=== PATIENT | female | born 1990 | race Caucasian/White ===

== ENCOUNTER 2016-08-22 16:39 | Observation (INO) | payer BC ==
[~2016-08-22] VITALS: Ht 167.6 cm; Wt 65.8 kg
[~2016-08-22 16:39] MED LIST: CEFU500T PO; CEPH500C PO; CITA20TA4; FLC150T PO; HYDR1TAB PO; LORA1TAB PO; METO10SO PO; METO10TA61 PO; METR500T PO; NITR-65 PO; ONDA-42 SL; ONDN4T PO; PHEN100T17 PO; SRTR100T PO; SULF1TAB38 PO; TRI-SPRINTEC PO; ZLP10T PO; [UNRECOGNIZED DRUG - CODE] PV
[2016-08-22 17:21] LABS: BILIRUBIN,URINE NEGATIVE (NEGATIVE); KETONES,URINE NEGATIVE (NEGATIVE); LEUKOCYTE ESTERASE ,URINE NEGATIVE (NEGATIVE); NITRITE,URINE NEGATIVE (NEGATIVE); PH,URINE 7 (5-9); PROTEIN,URINE 1+ (NEGATIVE); UROBILINOGEN,URINE NORMAL (NORMAL)
[2016-08-22 17:38] LABS: WBC,URINE RARE /HPF
--- NOTE | 2016-08-22 17:38 | ED Psychosocial ---
General Chief Complaint: Psych/Social Disorder Stated Complaint: PSYCH EVAL Nursing Triage Note: c/o etoh abuse and suicidal ideations. Pt has a hx of chronic ETOH abuse. Source: patient, other (significant other) Exam Limitations: no limitations History of Present Illness Time seen by provider: 17:38 Initial Comments 26 yo female patient presents to the ED with complaint of EtOH abuse and suicidal ideation. Patient states she did have a handful of pills she was about to take one her significant other walked in stopping her. Patient reports drinking 5-6 "gulps of vodka" today. Patient stopped her zoloft cold turkey 1 wk ago and is not sure if this has made her symptoms. worse. Boyfriend reports patient has been more irritable and agitated over the last several days. Patient's father committed suicide. Patient recently lost her job. States she has been drinking consistently for the last 1 wk. Prior binge drinking x2 episodes over the last 3 wks. Timing/Duration: week, getting worse Associated Symptoms: anxiety, impaired concentration, ingestion (ETOH), suicidal ideation Allergies and Home Medications Allergies Coded Allergies: codeine (Unverified Allergy, Unknown, 02/06/12) Home Medications No Active Prescriptions or Reported Meds Constitutional: no symptoms reported EENTM: no symptoms reported Respiratory: no symptoms reported Cardiovascular: no symptoms reported Gastrointestinal: No abdominal pain, No constipation, No diarrhea, loss of appetiteNo nausea, No vomiting Genitourinary: no symptoms reported : No Musculoskeletal: no symptoms reported Skin: no symptoms reported Psychiatric/Neurological: See HPI Anxiety DepressedDenies Headache, Denies Numbness, Denies Paresthesia, Denies Seizure, Denies Tingling, Denies Weakness All Other Systems Reviewed Negative Unless Noted: Yes (Negative excepted noted.) Past Kfiiunp-Owvzgb-Bvnuao Hx Patient Social History Alcohol Use: Regular Use Recreational Drug Use: No (etoh, ectasy) Smoking Status: Unknown if Ever Smoked Recent Foreign Travel: No Contact w/Someone Who Travel: No Recent Infectious Disease Expo: No Physical Abuse Screen: No Sexual Abuse: No Immunizations Up To Date Tetanus Booster (TDap): Unknown Date of Influenza Vaccine: Oct 05, 2015 Surgeries HX Surgeries: No Respiratory Hx Respiratory Disorders: No Cardiovascular Hx Cardiac Disorders: No Neurological Hx Neurological Disorders: No Reproductive System : No Hx Reproductive Disorders: No Sexually Transmitted Disease: No Genitourinary Hx Genitourinary Disorders: No Gastrointestinal Hx Gastrointestinal Disorders: Yes (recurrent chronic abdominal pain) Musculoskeletal Hx Musculoskeletal Disorders: No Endocrine Hx Endocrine Disorders: No HEENT HX ENT Disorders: No Cancer Hx Cancer: No Psychosocial Hx Psychiatric Problems: Yes Behavioral Health Disorders: Anxiety, Depression Integumentary HX Skin/Integumentary Disorder: No Blood Transfusions Hx Blood Disorders: No Reviewed Nursing Assessment Reviewed/Agree w Nursing PMH: Yes Family Medical History Significant Family History: No Pertinent Family Hx Family Medial History: Alcoholism 19 MOTHER Thyroid disease 19 FATHER Physical Exam Vital Signs Vital Sign - Last 12Hours 08/22/16 16:45 Temp 97.3 Pulse 100 Resp 18 B/P 147/111 Pulse Ox 98 O2 Delivery Room Air Capillary Refill : Less Than 3 Seconds General Appearance: WD/WN no apparent distress HEENT: PERRL/EOMI pharynx normal Neck: supple normal inspection Respiratory: lungs clear normal breath sounds no respiratory distress Cardiovascular: normal peripheral pulses regular rate, rhythm no edema no murmur Gastrointestinal: normal bowel sounds non tender soft no organomegalyNo distended Extremities: normal inspection no pedal edema no calf tenderness normal capillary refill Neurologic/Psychiatric: environmental scientists II-XII nml as tested no motor/sensory deficits alert oriented x 3 depressed affect Appearance/Memory: appropriate appearance neat no memory impairment impaired insight Behavior/Eye Contact: cooperative avoids eye contact decreased rate of speech Thoughts/Hallucinations: normal thought pattern no apparent hallucination Skin: normal color warm/dry Progress/Results/Core Measures Results/Orders Lab Results Laboratory Tests Test 08/22/16 16:55 08/22/16 18:00 08/22/16 21:10 Range/Units Ur Tricyclic Antidepressants Screen NEGATIVE NEGATIVE Urine Amphetamines Screen NEGATIVE NEGATIVE Urine Bacteria TRACE /HPF Urine Barbiturates Screen NEGATIVE NEGATIVE Urine Benzodiazepines Screen NEGATIVE NEGATIVE Urine Bilirubin NEGATIVE NEGATIVE Urine Cannabinoids Screen NEGATIVE NEGATIVE Urine Casts NONE /LPF Urine Clarity SLIGHTLY CLOUDY Urine Cocaine Screen NEGATIVE NEGATIVE Urine Color YELLOW Urine Crystals NONE /LPF Urine Culture Indicated NO Urine Glucose (UA) NEGATIVE NEGATIVE Urine Ketones NEGATIVE NEGATIVE Urine Leukocyte Esterase NEGATIVE NEGATIVE Urine Methadone Screen NEGATIVE NEGATIVE Urine Methamphetamines Screen NEGATIVE NEGATIVE Urine Mucus NEGATIVE /LPF Urine Nitrite NEGATIVE NEGATIVE Urine Opiates Screen NEGATIVE NEGATIVE Urine Oxycodone Screen NEGATIVE NEGATIVE Urine Phencyclidine Screen NEGATIVE NEGATIVE Urine Test NEGATIVE NEGATIVE Urine Propoxyphene Screen NEGATIVE NEGATIVE Urine Protein 1+ H NEGATIVE Urine RBC 0-2 /HPF Urine RBC (Auto) 3+ H NEGATIVE Urine Specific [place] 1.010 L 1.016-1.022 Urine Squamous Epithelial Cells 2-5 /HPF Urine Urobilinogen NORMAL NORMAL MG/DL Urine WBC RARE /HPF Urine pH 7 5-9 Acetaminophen Level < 10 L 10-30 UG/ML Alanine Aminotransferase (ALT/SGPT) 50 0-55 U/L Albumin 4.4 3.2-4.5 G/DL Alkaline Phosphatase 56 40-136 U/L Anion Gap 13 5-14 MMOL/L Aspartate Amino Transf (AST/SGOT) 75 H 5-34 U/L BUN/Creatinine Ratio 13 Basophils # (Auto) 0.0 0.0-0.1 10^3/uL Basophils (%) (Auto) 1 0-10 % Blood Urea Nitrogen 9 7-18 MG/DL Calcium Level 8.4 L 8.5-10.1 MG/DL Carbon Dioxide Level 22 21-32 MMOL/L Chloride Level 108 H 98-107 MMOL/L Creatinine 0.69 0.60-1.30 MG/DL Eosinophils # (Auto) 0.1 0.0-0.3 10^3/uL Eosinophils (%) (Auto) 3 0-10 % Estimat Glomerular Filtration Rate > 60 Glucose Level 83 70-105 MG/DL Hematocrit 42 35-52 % Hemoglobin 14.7 11.5-16.0 G/DL Lymphocytes # (Auto) 1.3 1.0-4.0 X 10^3 Lymphocytes (%) (Auto) 35 12-44 % Mean Corpuscular Hemoglobin 33 25-34 PG Mean Corpuscular Hemoglobin Concent 35 32-36 G/DL Mean Corpuscular Volume 92 80-99 FL Mean Platelet Volume 10.0 7.4-10.4 FL Monocytes # (Auto) 0.3 0.0-1.0 X 10^3 Monocytes (%) (Auto) 8 0-12 % Neutrophils # (Auto) 2.0 1.8-7.8 X 10^3 Neutrophils (%) (Auto) 53 42-75 % Platelet Count 179 130-400 10^3/uL Potassium Level 3.8 3.6-5.0 MMOL/L Red Blood Count 4.51 4.35-5.85 10^6/uL Red Cell Distribution Width 12.0 10.0-14.5 % Salicylates Level < 5.0 L 5.0-20.0 MG/DL Serum Alcohol 348 *H 266 H <10 MG/DL Sodium Level 143 135-145 MMOL/L TSH Chambers Testing 1.14 0.35-4.94 UIU/ML Total Bilirubin 1.0 0.1-1.0 MG/DL Total Protein 6.6 6.4-8.2 G/DL White Blood Count 3.7 L 4.3-11.0 10^3/uL My Orders Orders-ALEJANDRO CHERRY Ua Culture If Indicated (08/22/16 16:56) Cbc With Automated Diff (08/22/16 16:56) Comprehensive Metabolic Panel (08/22/16 16:56) Alcohol (08/22/16 16:56) Drug Screen Stat (Urine) (08/22/16 16:56) Acetaminophen (08/22/16 16:56) Salicylate (08/22/16 16:56) Ekg Tracing (08/22/16 16:56) Hcg,Qualitative Urine (08/22/16 16:56) Thyroid Analyzer (08/22/16 16:56) General/Regular (08/23/16 Dinner) General/Regular (08/22/16 Dinner) Alcohol (08/22/16 21:03) Lorazepam Injection (Ativan Injection) (08/22/16 21:15) Medications Given in ED Current Medications Medications Dose Ordered Sig/Carroll Route Start Time Stop Time Status Last Admin Dose Admin Lorazepam 0.5 mg ONCE ONCE IVP 08/22/16 21:15 08/22/16 21:16 DC 08/22/16 21:26 0.5 MG Vital Signs/I&O Vital Sign - Last 12Hours 08/22/16 08/22/16 08/22/16 16:45 19:25 23:09 Temp 97.3 Pulse 100 104 119 Resp 18 16 16 B/P 147/111 129/80 102/77 Pulse Ox 98 98 98 O2 Delivery Room Air Room Air Room Air Blood Pressure Mean: 123 ECG Initial ECG Impression Date: Aug 22, 2016 Initial ECG Impression Time: 17:39 Initial ECG Rate: 86 Initial ECG Rhythm: Normal Sinus Initial ECG Intervals: Normal Initial ECG Impression: Normal Initial ECG Comparisson: Unchanged Comment Normal sinus rhythm. No STEMI or arrhythmia noted. ECG reviewed and discussed with Dr. Jiang Departure Communication Time/Spoke to Admitting Phy: 23:[address] Hahn accepts patient to his internal medicine service for short stay until bed is available in the AM. Progress Notes [facility] contacted. Requests patient info to be faxed to their facility for review by the psychiatrist. Patient notified. 2104 Return call accepted from Berta at [facility]. Psychiatrist is requesting an repeat ETOH level. Patient notified of this. Patient denies any new needs or complaints. 2138 Repeat ETOH results called to Berta at [facility]. [facility] in [place], [place] accepts patient to their facility for suicidal ideation, depression, and ETOH intoxication, but will not have a bed available until 0700 in the AM. All laboratory findings and diagnostic study findings discussed with the patient. Plan for admission overnight until that is available in the a.m. at [facility] discussed with the patient. Patient voices understanding and agrees with the treatment plan. Patient case discussed with Dr. Meza, she agrees with the plan of care. Impression Impression: Primary Impression: Depression with suicidal ideation Additional Impressions: Alcohol intoxication Qualified Code: F10.120 - Alcohol abuse with intoxication, uncomplicated Stress at home Disposition: ADMITTED INPATIENT Condition: Stable Decision to Admit Reason: Admit from ER (General) Decision to Admit/Date: Aug 22, 2016 Time/Decision to Admit Time: 23:15 Departure-Patient Inst. Referrals: NO,LOCAL PHYSICIAN (PCP/Family) Primary Care Physician Scripts No Active Prescriptions or Reported Meds ALEJANDRO CHERRY Aug 22, 2016 17:38
[2016-08-22 18:31] LABS: ALANINE AMINOTRANSFERASE 50 U/L (0-55); ALBUMIN 4.4 G/DL (3.2-4.5); ANION GAP 13 MMOL/L (5-14); ASPARTATE AMINO TRANSFERASE 75 U/L (5-34); BLOOD UREA NITROGEN 9 MG/DL (7-18); BUN/CREATININE RATIO 13; CALCIUM 8.4 MG/DL (8.5-10.1); CARBON DIOXIDE 22 MMOL/L (21-32); CHLORIDE 108 MMOL/L (98-107); CREATININE SERUM 0.69 MG/DL (0.60-1.30); GFR ESTIMATED > 60; GLUCOSE 83 MG/DL (70-105); POTASSIUM 3.8 MMOL/L (3.6-5.0); SALICYLATE < 5.0 MG/DL (5.0-20.0); SODIUM 143 MMOL/L (135-145); TOTAL PROTEIN 6.6 G/DL (6.4-8.2)
[2016-08-22 18:32] LABS: ACETAMINOPHEN < 10 UG/ML (10-30)
[2016-08-22 18:33] LABS: ALCOHOL 348 MG/DL (<10)
[2016-08-22 18:36] LABS: BASOPHILS % (AUTO) 1 % (0-10); EOSINOPHILS # (AUTO) 0.1 10^3/uL (0.0-0.3); EOSINOPHILS % (AUTO) 3 % (0-10); LYMPHOCYTES # (AUTO) 1.3 X 10^3 (1.0-4.0); LYMPHOCYTES % (AUTO) 35 % (12-44); MEAN CORPUSCULAR HEMOGLOBIN 33 PG (25-34); MEAN CORPUSCULAR HGB CONC 35 G/DL (32-36); MEAN CORPUSCULAR VOLUME 92 FL (80-99); MONOCYTES # (AUTO) 0.3 X 10^3 (0.0-1.0); MONOCYTES % (AUTO) 8 % (0-12); NEUTROPHILS % (AUTO) 53 % (42-75); PLATELET COUNT 179 10^3/uL (130-400); RED BLOOD COUNT 4.51 10^6/uL (4.35-5.85); WHITE BLOOD COUNT 3.7 10^3/uL (4.3-11.0)
[2016-08-22 19:25] VITALS: BP 129/80
[2016-08-22] MEDS ORDERED: LORazepam INJ 2 MG/ML (ATIVAN) VIAL IVP ONE (21:15)
[2016-08-22 23:09] VITALS: BP 102/77
[2016-08-23 01:00] VITALS: BP 112/81
[2016-08-23] MEDS ORDERED: LORazepam INJ 2 MG/ML (ATIVAN) VIAL IV PRN (02:15)
[2016-08-23] MEDS ORDERED: ACETAMINOPHEN 500 MG TAB (TYLENOL) PO PRN (02:15)
[2016-08-23] MEDS ORDERED: ONDANSETRON 4 MG/2 ML (SDV) Z0FRAN IV PRN (02:15)
[2016-08-23 04:00] VITALS: BP 127/79
[2016-08-23 06:25] LABS: BASOPHILS % (AUTO) 1 % (0-10); EOSINOPHILS # (AUTO) 0.1 10^3/uL (0.0-0.3); EOSINOPHILS % (AUTO) 3 % (0-10); LYMPHOCYTES # (AUTO) 1.1 X 10^3 (1.0-4.0); LYMPHOCYTES % (AUTO) 27 % (12-44); MEAN CORPUSCULAR HEMOGLOBIN 32 PG (25-34); MEAN CORPUSCULAR HGB CONC 35 G/DL (32-36); MEAN CORPUSCULAR VOLUME 92 FL (80-99); MEAN PLATELET VOLUME 10.3 FL (7.4-10.4); MONOCYTES # (AUTO) 0.4 X 10^3 (0.0-1.0); MONOCYTES % (AUTO) 10 % (0-12); NEUTROPHILS # (AUTO) 2.4 X 10^3 (1.8-7.8); NEUTROPHILS % (AUTO) 60 % (42-75); PLATELET COUNT 139 10^3/uL (130-400); RED BLOOD COUNT 4.19 10^6/uL (4.35-5.85); RED CELL DISTRIBUTION WIDTH 11.9 % (10.0-14.5)
[2016-08-23 06:43] LABS: ALANINE AMINOTRANSFERASE 49 U/L (0-55); ALCOHOL 82 MG/DL (<10); ANION GAP 14 MMOL/L (5-14); ASPARTATE AMINO TRANSFERASE 74 U/L (5-34); BILIRUBIN,TOTAL 1.4 MG/DL (0.1-1.0); BLOOD UREA NITROGEN 9 MG/DL (7-18); BUN/CREATININE RATIO 14; CALCIUM 8.6 MG/DL (8.5-10.1); CARBON DIOXIDE 20 MMOL/L (21-32); CHLORIDE 103 MMOL/L (98-107); CREATININE SERUM 0.63 MG/DL (0.60-1.30); GFR ESTIMATED > 60; GLUCOSE 75 MG/DL (70-105); POTASSIUM 3.4 MMOL/L (3.6-5.0); SODIUM 137 MMOL/L (135-145); TOTAL PROTEIN 6.1 G/DL (6.4-8.2)
[2016-08-23] MEDS ORDERED: FLU TRIvalent (5 YOA+) 2016-17 (AFLURIA) 0.5 ML IM ONE (07:15)
[2016-08-23 08:31] VITALS: BP 126/90
[2016-08-23 09:20] VITALS: BP 126/90
--- NOTE | 2016-09-06 13:37 | Short Stay Summary-Hospitalist ---
TYRONE MAHMOOD MD 09/06/16 1337: HPI History of Present Illness: HPI/Chief Complaint The patient is a 26-year-old white female known substance abuser. She presented to the emergency room on the evening of 08/22 acutely and dangerously intoxicated with a alcohol level of 348. She was admitted to the ICU for surveillance and IV therapy. Her ethanol level declined metabolically as would be expected. She awakened and left AMA without being seen. Date Seen 09/06/16 Attending Physician Tyrone Mahmood MD PCP No,Local Physician Referring Physician Date of Admission Aug 23, 2016 at 00:50 Home Medications & Allergies Home Medications Reviewed patient Home Medication Reconciliation Form Allergies Coded Allergies: codeine (Unverified Allergy, Unknown, 02/06/12) Past Jzxzchi-Cbfabl-Buhslp Hx Patient Social History Alcohol Use: Regular Use Recreational Drug Use: No Smoking Status: Former Smoker Physical Abuse Screen: No Sexual Abuse: No Recent Foreign Travel: No Contact w/other who traveled: No Recent Hopitalizations: Yes Recent Infectious Disease Expo: No Immunizations Up To Date Tetanus Booster (TDap): Unknown Date of Influenza Vaccine: Oct 05, 2015 Surgeries HX Surgeries: No Respiratory Hx Respiratory Disorders: No Cardiovascular Hx Cardiovascular Disorders: No Neurological Hx Neurological Disorders: No Reproductive System : No Hx Reproductive Disorders: No Sexually Transmitted Disease: No Genitourinary Hx Genitourinary Disorders: No Gastrointestinal Hx Gastrointestinal Disorders: Yes (recurrent chronic abdominal pain) Musculoskeletal Hx Musculoskeletal Disorders: No Endocrine Hx Endocrine Disorders: No HEENT HX ENT Disorders: No Cancer Hx Cancer: No Psychosocial Hx Psychiatric Problems: Yes Behavioral Health Disorders: Eating Disorder, Sleep Difficulties, Anxiety, Depression Integumentary HX Skin/Integumentary Disorder: No Blood Transfusions Hx Blood Disorders: No Reviewed Nursing Assessment Reviewed/Agree w Nursing PMH: Yes Family Medical History Significant Family History: No Pertinent Family Hx Family Hx: Alcoholism 19 MOTHER Thyroid disease 19 FATHER Review of Systems Constitutional: see HPI Physical Exam Physical Exam Vital Signs Capillary Refill : Less Than 3 Seconds Short Stay Diagnosis Discharge Diagnosis-Short Stay Admission Diagnosis Acute alcohol intoxication Final Discharge Diagnosis 1.acute alcohol intoxication. 2.chronic substance abuse Clinical Quality Measures DVT/VTE Risk/Contraindication: RFS Level Per Nursing on Admit: 0=No Risk/No VTE PPX TARSHA SMITH 09/27/16 1257: Home Medications & Allergies Allergies Coded Allergies: codeine (Unverified Allergy, Unknown, 02/06/12) Past Sbmntim-Vieiit-Jnuqwj Hx Family Medical History Family Hx: Alcoholism 19 MOTHER Thyroid disease 19 FATHER TYRONE MAHMOOD MD Sep 06, 2016 13:37 TARSHA SMITH Sep 27, 2016 12:57
== END 2016-08-23 09:36 ==
LOC: EDUNIT# 16:39 → ER 16:41 → UNDOADMOB 23:10 → 4TH 23:10 → UNDODISOB 08-23 09:20
PROVIDERS: ADMIT Internal Medicine; ATTEND Internal Medicine
DX: F32.9 Major depressive disorder, single episode, unspecified (principal); F10.120 Alcohol abuse with intoxication, uncomplicated; Z63.8 Other specified problems related to primary support group
CPT/HCPCS: 36415; 80053; 80306; 80320; 80329; 81000; 84443; 84703; 85025; 93005; 96374; G0378

== ENCOUNTER → 2017-11-07 | Outpatient (CLI) | payer BC, OTHER ==
--- NOTE | 2017-11-07 16:11 | Diagnostic Imaging Report ---
PROCEDURE: US PELVIC (NON OB) TECHNIQUE: Multiple real-time grayscale images were obtained over the pelvis in various projections transabdominally. IMPRESSION: Dysmenorrhea. FINDINGS: The previous pelvic ultrasound exam performed on 10/09/2014 failed to show any sign of an acute pelvic abnormality. On this study, the uterus is nongravid and not enlarged measuring 6.9 x 5 x 2.8 cm. The endometrial lining is slightly thickened measuring 9 mm (normal 5 mm or less). This finding is nonspecific. Correlation with the patient's menstrual cycle will be recommended. There is no focal mass involving the uterus to suggest a fibroid. Both ovaries are identified. There is a 2.2 x 1.4 x 1.8 cm cyst arising from the right ovary. This cyst has a generally benign appearance. There are few subcentimeter follicles on the left ovary. There is good blood flow to each ovary and there is no sign of torsion. There is no pelvic mass or free fluid collection noted. IMPRESSION: 1. In the interval since the prior exam, a 2.2 x 1.4 x 1.8 cm benign-appearing cyst has developed in the right ovary. 2. There is no acute pelvic abnormality noted otherwise. Dictated by: Dictated on workstation # [id number]
== END ==
LOC: RAD 12:50
PROVIDERS: ATTEND Nurse Practitioner Family
DX: N83.201 Unspecified ovarian cyst, right side (principal)
CPT/HCPCS: 76856

== ENCOUNTER 2018-03-15 12:00 | Observation (INO) | payer OTHER ==
[~2018-03-15] VITALS: Ht 167.6 cm; Wt 69.5 kg
[2018-03-15] MEDS ORDERED: ONDANSETRON 4 MG/2 ML (SDV) Z0FRAN ONE (12:32)
[2018-03-15] MEDS ORDERED: NS IV 1000 ML 1,000 ML ONE (12:32)
[2018-03-15] MEDS ORDERED: NS IV 1000 ML 1,000 ML IV SCH (12:33)
[2018-03-15 12:41] LABS: BASOPHILS % (AUTO) 0 % (0-10); EOSINOPHILS # (AUTO) 0.1 10^3/uL (0.0-0.3); EOSINOPHILS % (AUTO) 1 % (0-10); HEMATOCRIT 41 % (35-52); HEMOGLOBIN 14.8 G/DL (11.5-16.0); LYMPHOCYTES # (AUTO) 2.5 X 10^3 (1.0-4.0); LYMPHOCYTES % (AUTO) 36 % (12-44); MEAN CORPUSCULAR HEMOGLOBIN 33 PG (25-34); MEAN CORPUSCULAR HGB CONC 37 G/DL (32-36); MEAN CORPUSCULAR VOLUME 91 FL (80-99); MONOCYTES # (AUTO) 0.5 X 10^3 (0.0-1.0); MONOCYTES % (AUTO) 7 % (0-12); NEUTROPHILS # (AUTO) 3.8 X 10^3 (1.8-7.8); NEUTROPHILS % (AUTO) 55 % (42-75); PLATELET COUNT 294 10^3/uL (130-400); RED BLOOD COUNT 4.47 10^6/uL (4.35-5.85)
[2018-03-15 12:42] LABS: BILIRUBIN,URINE NEGATIVE (NEGATIVE); CLARITY,URINE CLEAR; COLOR,URINE YELLOW; GLUCOSE, URINE (UA) NEGATIVE (NEGATIVE); KETONES,URINE NEGATIVE (NEGATIVE); LEUKOCYTE ESTERASE ,URINE 2+ (NEGATIVE); NITRITE,URINE NEGATIVE (NEGATIVE); PH,URINE 7 (5-9); PROTEIN,URINE NEGATIVE (NEGATIVE); UROBILINOGEN,URINE NORMAL (NORMAL)
--- NOTE | 2018-03-15 12:42 | ED Abdominal Pain ---
General Stated Complaint: VOMITING Source of Information: Patient Exam Limitations: No Limitations History of Present Illness Date Seen by Provider: Mar 15, 2018 Time Seen by Provider: 12:38 Initial Comments Patient is a 28-year-old female who presents to the emergency room with complaints of nausea, vomiting, diarrhea for 6 days. She reports that she was seen at [facility] on Sunday of this week and was told that it was from her control and she was told to stop taking it. Denies any fevers Timing/Duration: 5-6 Days Severity/Quality: Cramping Location: Generalized Abdomen Associated Symptoms: Back Pain, Nausea/Vomiting Allergies and Home Medications Allergies Coded Allergies: codeine (Unverified Allergy, Unknown, 03/15/18) Home Medications No Active Prescriptions or Reported Meds Patient Home Medication List Home Medication List Reviewed: Yes Review of Systems Constitutional: see HPI; No chills, No fever Gastrointestinal: See HPI, Abdominal Pain, Diarrhea, Nausea, Vomiting All Other Systems Reviewed Negative Unless Noted: Yes Past Qljjrcf-Pjtswq-Dxooqy Hx Past Med/Social Hx: Reviewed Nursing Past Med/Soc Hx Patient Social History Alcohol Beverage of Choice: Vodka Recent Foreign Travel: No Contact w/Someone Who Travel: No Recent Hopitalizations: Yes Immunizations Up To Date Tetanus Booster (TDap): Unknown Date of Influenza Vaccine: Oct 05, 2015 Past Medical History Surgeries: No (wisdom teeth removal) Respiratory: No Cardiac: No Neurological: No Reproductive Disorders: No Sexually Transmitted Disease: No Genitourinary: No Gastrointestinal: No Musculoskeletal: No Endocrine: No HEENT: No Cancer: No Psychosocial: Yes Eating Disorder, Sleep Difficulties, Anxiety, Depression Integumentary: No Blood Disorders: No Family Medical History Reviewed Nursing Family Hx Alcoholism 19 MOTHER Thyroid disease 19 FATHER No Pertinent Family Hx Physical Exam Vital Signs Vital Signs - First Documented 03/15/18 12:21 Temp 98.5 Pulse 90 Resp 16 B/P (MAP) 121/91 (101) Pulse Ox 96 Capillary Refill : Height/Weight/BMI Height: 5'6.00" Weight: 145lbs. 0.0oz. 65.480558aq; 23.4 BMI Method:Estimated General Appearance: WD/WN, no apparent distress Respiratory: chest non-tender, lungs clear, normal breath sounds, no respiratory distress, no accessory muscle use Cardiovascular: regular rate, rhythm, no edema, no gallop, no JVD, no murmur Gastrointestinal: normal bowel sounds, non tender, soft, no organomegaly Neurologic/Psychiatric: alert, normal mood/affect, oriented x 3 Progress/Results/Core Measures Results/Orders Lab Results Laboratory Tests Test 03/15/18 12:23 03/15/18 12:30 Range/Units Urine Color YELLOW Urine Clarity CLEAR Urine pH 7 5-9 Urine Specific [place] 1.005 L 1.016-1.022 Urine Protein NEGATIVE NEGATIVE Urine Glucose (UA) NEGATIVE NEGATIVE Urine Ketones NEGATIVE NEGATIVE Urine Nitrite NEGATIVE NEGATIVE Urine Bilirubin NEGATIVE NEGATIVE Urine Urobilinogen NORMAL NORMAL MG/DL Urine Leukocyte Esterase 2+ H NEGATIVE Urine RBC (Auto) NEGATIVE NEGATIVE Urine RBC NONE /HPF Urine WBC 10-25 H /HPF Urine Squamous Epithelial Cells 10-25 H /HPF Urine Crystals NONE /LPF Urine Bacteria MODERATE H /HPF Urine Casts NONE /LPF Urine Mucus NEGATIVE /LPF Urine Culture Indicated YES Urine Test NEGATIVE NEGATIVE Urine Opiates Screen NEGATIVE NEGATIVE Urine Oxycodone Screen NEGATIVE NEGATIVE Urine Methadone Screen NEGATIVE NEGATIVE Urine Propoxyphene Screen NEGATIVE NEGATIVE Urine Barbiturates Screen NEGATIVE NEGATIVE Ur Tricyclic Antidepressants Screen NEGATIVE NEGATIVE Urine Phencyclidine Screen NEGATIVE NEGATIVE Urine Amphetamines Screen NEGATIVE NEGATIVE Urine Methamphetamines Screen NEGATIVE NEGATIVE Urine Benzodiazepines Screen NEGATIVE NEGATIVE Urine Cocaine Screen NEGATIVE NEGATIVE Urine Cannabinoids Screen NEGATIVE NEGATIVE White Blood Count 7.0 4.3-11.0 10^3/uL Red Blood Count 4.47 4.35-5.85 10^6/uL Hemoglobin 14.8 11.5-16.0 G/DL Hematocrit 41 35-52 % Mean Corpuscular Volume 91 80-99 FL Mean Corpuscular Hemoglobin 33 25-34 PG Mean Corpuscular Hemoglobin Concent 37 H 32-36 G/DL Red Cell Distribution Width 12.0 10.0-14.5 % Platelet Count 294 130-400 10^3/uL Mean Platelet Volume 10.0 7.4-10.4 FL Neutrophils (%) (Auto) 55 42-75 % Lymphocytes (%) (Auto) 36 12-44 % Monocytes (%) (Auto) 7 0-12 % Eosinophils (%) (Auto) 1 0-10 % Basophils (%) (Auto) 0 0-10 % Neutrophils # (Auto) 3.8 1.8-7.8 X 10^3 Lymphocytes # (Auto) 2.5 1.0-4.0 X 10^3 Monocytes # (Auto) 0.5 0.0-1.0 X 10^3 Eosinophils # (Auto) 0.1 0.0-0.3 10^3/uL Basophils # (Auto) 0.0 0.0-0.1 10^3/uL Sodium Level 140 135-145 MMOL/L Potassium Level 3.6 3.6-5.0 MMOL/L Chloride Level 105 98-107 MMOL/L Carbon Dioxide Level 24 21-32 MMOL/L Anion Gap 11 5-14 MMOL/L Blood Urea Nitrogen 9 7-18 MG/DL Creatinine 0.80 0.60-1.30 MG/DL Estimat Glomerular Filtration Rate > 60 BUN/Creatinine Ratio 11 Glucose Level 113 H 70-105 MG/DL Calcium Level 8.8 8.5-10.1 MG/DL Corrected Calcium 8.6 8.5-10.1 MG/DL Magnesium Level 2.1 1.8-2.4 MG/DL Total Bilirubin 1.0 0.1-1.0 MG/DL Aspartate Amino Transf (AST/SGOT) 20 5-34 U/L Alanine Aminotransferase (ALT/SGPT) 20 0-55 U/L Alkaline Phosphatase 51 40-136 U/L Total Protein 6.8 6.4-8.2 GM/DL Albumin 4.3 3.2-4.5 GM/DL Lipase 34 8-78 U/L Serum Alcohol 348 *H <10 MG/DL Medications Given in ED Current Medications Medications Dose Ordered Sig/Carroll Route Start Time Stop Time Status Last Admin Dose Admin Ondansetron HCl 4 mg ONCE ONCE IVP 03/15/18 12:45 03/15/18 12:46 DC 03/15/18 12:37 4 MG Vital Signs/I&O 03/15/18 12:21 Temp 98.5 Pulse 90 Resp 16 B/P (MAP) 121/91 (101) Pulse Ox 96 Progress Progress Note : Time: 13:40 Progress Note Spoke to Dr. Mosqueda at this time. She agrees with admission, she also recommends the alcohol withdrawal protocol in addition to 2 mg of Ativan IV every 6 hours scheduled. Patient was informed of plan of care and agrees. She states that her last drink of alcohol was at 2 AM last night. She states that she drinks lots regularly anywhere from a couple of drinks a night to a pint of alcohol. She denies ever having seizures but she does state that she withdrawals. Departure Communication (Admissions) Time/Spoke to Admitting Phy: 13:40 Dr. Mosqueda Impression Primary Impression: Alcohol intoxication Additional Impression: Urinary tract infection Disposition: ADMITTED INPATIENT Condition: Stable/Unchanged Admissions Decision to Admit Reason: Admit from ER (General) Decision to Admit/Date: Mar 15, 2018 Time/Decision to Admit Time: 14:00 Departure-Patient Inst. Referrals: NO,LOCAL PHYSICIAN (PCP/Family) Primary Care Physician Scripts No Active Prescriptions or Reported Meds DEBRA VEGA Mar 15, 2018 12:42
[2018-03-15] MEDS ORDERED: ONDANSETRON 4 MG/2 ML (SDV) Z0FRAN IVP ONE (12:45)
[2018-03-15 12:47] LABS: HCG,QUALITATIVE URINE NEGATIVE (NEGATIVE)
[2018-03-15 12:49] LABS: BACTERIA,URINE MODERATE /HPF
[2018-03-15 13:01] LABS: ALANINE AMINOTRANSFERASE 20 U/L (0-55); ALBUMIN 4.3 GM/DL (3.2-4.5); ALKALINE PHOSPHATASE 51 U/L (40-136); BUN/CREATININE RATIO 11; CALCIUM 8.8 MG/DL (8.5-10.1); CARBON DIOXIDE 24 MMOL/L (21-32); CHLORIDE 105 MMOL/L (98-107); GFR ESTIMATED > 60; GLUCOSE 113 MG/DL (70-105); LIPASE 34 U/L (8-78); MAGNESIUM 2.1 MG/DL (1.8-2.4); POTASSIUM 3.6 MMOL/L (3.6-5.0); SODIUM 140 MMOL/L (135-145); TOTAL PROTEIN 6.8 GM/DL (6.4-8.2)
[2018-03-15 13:03] LABS: AMPHETAMINE SCREEN, URINE NEGATIVE (NEGATIVE); BARBITURATE SCREEN URINE NEGATIVE (NEGATIVE); BENZODIAZEPINES SCREEN URINE NEGATIVE (NEGATIVE); CANNABINOID SCREEN, URINE NEGATIVE (NEGATIVE); COCAINE SCREEN URINE NEGATIVE (NEGATIVE); METHADONE STAT NEGATIVE (NEGATIVE); METHAMPHETAMINE SCREEN URINE S NEGATIVE (NEGATIVE); OPIATE SCREEN URINE NEGATIVE (NEGATIVE); OXYCODONE STAT NEGATIVE (NEGATIVE); PROPOXYPHENE STAT NEGATIVE (NEGATIVE); TRICYCLIC ANTIDEPRESSANTS SCRE NEGATIVE (NEGATIVE)
[2018-03-15 15:08] VITALS: BP 122/81
[2018-03-15] MEDS ORDERED: D5 1/2 NS W/KCL 20 MEQ/L 1,000 ML IV SCH (15:13)
[2018-03-15] MEDS ORDERED: 1/2 NS IV SOLUTION 1,000 ML IV PRN (15:13)
[2018-03-15] MEDS ORDERED: SENNA W/DOCUSATE (SENOKOT S) TABLET PO PRN (15:15)
[2018-03-15] MEDS ORDERED: ONDANSETRON 4 MG/2 ML (SDV) Z0FRAN IV PRN (15:15)
[2018-03-15] MEDS ORDERED: ONDANSETRON 4 MG (ZOFRAN) ORAL DISSOLVE TAB SL PRN (15:15)
[2018-03-15] MEDS ORDERED: ANTACID SUSP 30 ML UDC (MYLANTA) PO PRN (15:15)
[2018-03-15] MEDS ORDERED: LORazepam INJ 2 MG/ML (ATIVAN) VIAL IM/IV PRN (15:15)
[2018-03-15] MEDS ORDERED: D5 1/2 NS 1000 ML IV SOLUTION 1,000 ML IV PRN (15:15)
[2018-03-15] MEDS ORDERED: CATHETER FLUSH 10 ML SYR IV PRN (15:30)
[2018-03-15] MEDS ORDERED: PROMETHAZINE 25 MG (PHENERGAN) TAB PO PRN (15:30)
[2018-03-15 16:00] VITALS: BP 117/81
[2018-03-15] MEDS: THIAMINE INJECTION 100 MG, FOLIC ACID INJECTION 1 MG, MAGNESIUM SULFATE 2 GM, VITAMIN M... IV SCH ×5 (16:01)
[2018-03-15] MEDS: LORazepam INJ 2 MG/ML (ATIVAN) VIAL IV PRN (16:04)
[2018-03-15] MEDS: LORazepam 1 MG (ATIVAN) TAB PO PRN (17:31)
[2018-03-15] MEDS: NS IV 1000 ML 1,000 ML IV SCH (18:06)
[2018-03-15 20:15] VITALS: BP 110/69
[2018-03-16] VITALS: BP 109/72
[2018-03-16] MEDS: NS IV 1000 ML 1,000 ML IV SCH ×2 (00:20→08:28)
[2018-03-16] MEDS: LORazepam INJ 2 MG/ML (ATIVAN) VIAL IV SCH ×4 (01:45→12:34)
[2018-03-16] MEDS: LORazepam INJ 2 MG/ML (ATIVAN) VIAL IV PRN (02:51)
[2018-03-16 04:00] VITALS: BP 104/66
[2018-03-16 07:02] LABS: BASOPHILS % (AUTO) 1 % (0-10); EOSINOPHILS # (AUTO) 0.1 10^3/uL (0.0-0.3); EOSINOPHILS % (AUTO) 2 % (0-10); HEMATOCRIT 38 % (35-52); HEMOGLOBIN 13.3 G/DL (11.5-16.0); LYMPHOCYTES # (AUTO) 1.8 X 10^3 (1.0-4.0); LYMPHOCYTES % (AUTO) 36 % (12-44); MEAN CORPUSCULAR HEMOGLOBIN 32 PG (25-34); MEAN CORPUSCULAR HGB CONC 35 G/DL (32-36); MEAN CORPUSCULAR VOLUME 93 FL (80-99); MEAN PLATELET VOLUME 10.1 FL (7.4-10.4); MONOCYTES # (AUTO) 0.4 X 10^3 (0.0-1.0); MONOCYTES % (AUTO) 8 % (0-12); NEUTROPHILS # (AUTO) 2.7 X 10^3 (1.8-7.8); NEUTROPHILS % (AUTO) 54 % (42-75); PLATELET COUNT 232 10^3/uL (130-400); RED BLOOD COUNT 4.11 10^6/uL (4.35-5.85); RED CELL DISTRIBUTION WIDTH 12.4 % (10.0-14.5)
[2018-03-16 07:34] LABS: ALANINE AMINOTRANSFERASE 18 U/L (0-55); ALBUMIN 3.7 GM/DL (3.2-4.5); ALKALINE PHOSPHATASE 47 U/L (40-136); BILIRUBIN,TOTAL 0.9 MG/DL (0.1-1.0); BUN/CREATININE RATIO 12; CALCIUM 7.6 MG/DL (8.5-10.1); CARBON DIOXIDE 21 MMOL/L (21-32); CHLORIDE 110 MMOL/L (98-107); CREATININE SERUM 0.77 MG/DL (0.60-1.30); GFR ESTIMATED > 60; GLUCOSE 87 MG/DL (70-105); SODIUM 140 MMOL/L (135-145); TOTAL PROTEIN 5.7 GM/DL (6.4-8.2)
[2018-03-16 08:00] VITALS: BP 118/69
[2018-03-16] MEDS: LORazepam 1 MG (ATIVAN) TAB PO PRN (08:28)
[2018-03-16] MEDS ORDERED: ONDA4TAB8 SL (09:41)
[2018-03-16] MEDS: THIAMINE INJECTION 100 MG, FOLIC ACID INJECTION 1 MG, MAGNESIUM SULFATE 2 GM, VITAMIN M... IV SCH ×5 (10:06)
[2018-03-16 12:00] VITALS: BP 115/62
--- NOTE | 2018-03-16 14:06 | Short Stay Summary ---
History of Present Illness History of Present Illness Reason for visit/HPI 28 yo F that presented to ER because she had had N/V for 4-5 days. States that she is an alcoholic and that she does not drink every day but when she does drinks she goes and binges. States that she has been drinking about a pint per day for the last week. Denies any withdraw seizures or complications. States that she has been to inpatient treatment before. Denies any thoughts of wanting to hurt herself of anyone else. Date of Admission Mar 15, 2018 at 2:00 pm Date of Discharge 03/16/2018 Time Seen by Provider: 14:00 Attending Physician Marce Mosqueda DO Admitting Physician No,Local Physician Consult Allergies and Home Medications Allergies Coded Allergies: codeine (Unverified Allergy, Unknown, 03/15/18) Home Medications Ondansetron 4 Mg Tab.rapdis, 4 MG SL Q8H PRN for NAUSEA/VOMITING-1ST LINE, ( Reported) Patient Home Medication List Home Medication List Reviewed: Yes Past Sjayuak-Hqubwa-Nsdiqo Hx Patient Social History Living Status: Lives in home with BF Alcohol Use: Regular Use Number of Drinks Today: 2 Alcohol Beverage of Choice: Vodka Recreational Drug Use: No Smoking Status: Never a Smoker Physical Abuse Screen: No Sexual Abuse: No Recent Foreign Travel: No Contact w/other who traveled: No Recent Hopitalizations: Yes Recent Infectious Disease Expo: No Immunizations Up To Date Tetanus Booster (TDap): Unknown Date of Influenza Vaccine: Oct 05, 2015 Surgeries Yes (wisdom teeth removal) Respiratory No Cardiovascular No Neurological No Reproductive System Hx Reproductive Disorders: No Sexually Transmitted Disease: No Genitourinary No Gastrointestinal No Musculoskeletal No Endocrine History of Endocrine Disorders: No HEENT History of HEENT Disorders: No Cancer No Psychosocial History of Psychiatric Problem: Yes Behavioral Health Disorders: Eating Disorder, Sleep Difficulties, Anxiety, Depression Integumentary History of Skin or Integumenta: No Blood Transfusions History of Blood Disorders: No Family Medical History Significant Family History: No Pertinent Family Hx Family Hx: Alcoholism 19 MOTHER Thyroid disease 19 FATHER Constitutional: No chills, No fever, No weakness EENTM: no symptoms reported Respiratory: no symptoms reported Cardiovascular: no symptoms reported Gastrointestinal: abdominal pain, heartburn, loss of appetite, nausea, vomiting Genitourinary: no symptoms reported; No dysuria, No frequency, No hematuria : No Control/STD Prophylaxis: None Musculoskeletal: no symptoms reported; No back pain, No joint pain, No muscle pain Skin: no symptoms reported; No lesions, No rash Psychiatric/Neurological: Denies Anxiety, Denies Depressed Physical Exam Vital Signs Vital Signs - First Documented 03/15/18 03/15/18 12:21 15:08 Temp 98.5 Pulse 90 Resp 16 B/P (MAP) 121/91 (101) Pulse Ox 96 O2 Delivery Room Air Capillary Refill : Less Than 3 Seconds Height, Weight, BMI Height: 5'6.00" Weight: 153lbs. 3.0oz. 69.424051md; 24.7 BMI Method:Estimated General Appearance: No Apparent Distress, WD/WN HEENT: PERRL/EOMI Neck: Full Range of Motion, Supple Respiratory: Chest Non Tender, Lungs Clear, Normal Breath Sounds, No Accessory Muscle Use, No Respiratory Distress Cardiovascular: Regular Rate, Rhythm, No Edema, No Murmur, Normal Peripheral Pulses Gastrointestinal: Normal Bowel Sounds, Non Tender, Soft Back: No CVA Tenderness, No Vertebral Tenderness Extremity: Non Tender, No Calf Tenderness, No Pedal Edema Neurologic/Psychiatric: Alert, Oriented x3, No Motor/Sensory Deficits, Normal Mood/Affect, case consultant II-XII Norm as Tested Skin: Normal Color, Warm/Dry Lymphatic: No Adenopathy Clinical Quality Measures DVT/VTE Risk/Contraindication: Risk Factor Score Per Nursin RFS Level Per Nursing on Admit: 1=Low/No VTE PPX Short Stay Diagnosis Discharge Diagnosis-Short Stay Admission Diagnosis: Intractable Nausea and Vomiting EtOH Intoxication EtOH Abuse Final Discharge Diagnosis: Intractable Nausea and Vomiting EtOH Intoxication EtOH Abuse Conclusion Labs Laboratory Tests 03/16/18 06:20: White Blood Count 5.0, Red Blood Count 4.11L, Hemoglobin 13.3, Hematocrit 38, Mean Corpuscular Volume 93, Mean Corpuscular Hemoglobin 32, Mean Corpuscular Hemoglobin Concent 35, Red Cell Distribution Width 12.4, Platelet Count 232, Mean Platelet Volume 10.1, Neutrophils (%) (Auto) 54, Lymphocytes (%) (Auto) 36 , Monocytes (%) (Auto) 8, Eosinophils (%) (Auto) 2, Basophils (%) (Auto) 1, Neutrophils # (Auto) 2.7, Lymphocytes # (Auto) 1.8, Monocytes # (Auto) 0.4, Eosinophils # (Auto) 0.1, Basophils # (Auto) 0.0, Sodium Level 140, Potassium Level 4.0, Chloride Level 110H, Carbon Dioxide Level 21, Anion Gap 9, Blood Urea Nitrogen 9, Creatinine 0.77, Estimat Glomerular Filtration Rate > 60, BUN/ Creatinine Ratio 12, Glucose Level 87, Calcium Level 7.6L, Corrected Calcium 7.8L, Total Bilirubin 0.9, Aspartate Amino Transf (AST/SGOT) 17, Alanine Aminotransferase (ALT/SGPT) 18, Alkaline Phosphatase 47, Total Protein 5.7L, Albumin 3.7, Serum Alcohol 170H Microbiology 03/15/18 Urine Culture - Preliminary, Resulted Sent To [facility] Conclusion/Plan 28 yo F that presented to ER with N/V Nausea and Vomiting - Patient was treated with IV Zofran and Phenergen and was able to tolerate PO fluids and diet prior to d/c EtOH Intoxication with Abuse - Patient states that she wants help and has appt with ATS at [facility] next week, encouraged patient to keep this appt - Will have someone check in with patient on Sunday [facility] Copy Copies To 1: EDGARDO NO MD, HOLLY R MD Mar 16, 2018 14:06
--- NOTE | 2018-03-16 14:07 | Discharge Instructions ---
Discharge Inst-[facility] Discharge Medications New, Converted or Re-Newed RX: Other Continued Medications: Ondansetron (Zofran Odt) 4 Mg Tab.rapdis 4 MG SL Q8H PRN for NAUSEA/VOMITING-1ST LINE, TAB Patient Instructions Goal/Follow Up Appt: Has appt next with with ATS at [facility] Activity & Diet Discharge Diet: No Restrictions Activity as Tolerated: Yes Copy Copies To 1: EDGARDO NO MD, HOLLY R MD Mar 16, 2018 2:07 pm
[2018-03-16 14:20] VITALS: BP 118/69
== END 2018-03-16 14:20 | disposition home or self-care (01) ==
LOC: EDUNIT# 12:00 → ER 12:02 → UNDOADMOB 14:00 → 4TH 14:00 → UNDODISOB 03-16 14:20
PROVIDERS: ADMIT Family Medicine; ATTEND Family Medicine
DX: R11.2 Nausea with vomiting, unspecified (principal); F10.129 Alcohol abuse with intoxication, unspecified; F32.9 Major depressive disorder, single episode, unspecified; F41.9 Anxiety disorder, unspecified
CPT/HCPCS: 36415; 80053; 80306; 80320; 81000; 83690; 83735; 84703; 85025; 87088; 96374; G0378

== ENCOUNTER 2018-04-17 06:49 | Emergency (ER) | payer OTHER ==
[~2018-04-17] VITALS: Ht 167.6 cm; Wt 65.8 kg
[~2018-04-17 06:49] MED LIST changes: +ONDA4TAB8 SL
[2018-04-17] MEDS ORDERED: LORazepam 0.5 MG (ATIVAN) TABLET PO ONE (07:15)
--- NOTE | 2018-04-17 07:20 | ED Psychosocial ---
General Chief Complaint: Psych/Social Disorder Stated Complaint: ANXIETY Source: patient Exam Limitations: no limitations History of Present Illness Date Seen by Provider: Apr 17, 2018 Time Seen by Provider: 07:00 Initial Comments The patient presents to the ER by private conveyance with chief complaint the past 2-3 days she's been having some low depressive mood feelings but not quite hopelessness and she denies any suicidal ideation. She says she did have a suicide attempt many years ago where she tried to take a lot of her pills. She' s been off of her depression medicines for the last 5 years because she says she got better. She has been having problems however with drinking too much alcohol. She says she drinks wine usually about a bottle a day. She denies having been just recently. She does claim to have bulimia but she says she's not been eating much lately either. She doesn't think she's had anything to eat in the last 2 days. No nausea fevers chills. She says she's never been told she has a problem with her heart but she did have an EKG done at the [facility][note 3] and she's not sure why that was. She just started school again at [employer] and between that and her job she's been having a lot of stress and she doesn't think she's dealing with it well. She was in counseling before but she's not anymore and she says it really helped her a lot and she back to get back into that. She does not follow with a primary care doctor but she did have a primary care doctor at [facility] who left to go somewhere else and she hasn't seen anyone since. She was given some hydroxyzine as needed from them and she did take a dose yesterday but she says it really didn't help at all. Patient states that her depression and anxiety usually gets worse when she starts drinking again. She says that it does not cause any problems with her jobs, friends, relationships but her anxiety does get worse with drinking. She used to be on citalopram and she would be keen to restart it. Allergies and Home Medications Allergies Coded Allergies: codeine (Unverified Allergy, Unknown, 03/15/18) Home Medications Ondansetron 4 Mg Tab.rapdis, 4 MG SL Q8H PRN for NAUSEA/VOMITING-1ST LINE, ( Reported) Patient Home Medication List Home Medication List Reviewed: Yes Review of Systems Constitutional: No chills, No diaphoresis EENTM: No hearing loss, No ear pain Respiratory: No cough, No dyspnea on exertion Cardiovascular: No chest pain, No edema, No palpitations Gastrointestinal: No abdominal pain, No constipation, No diarrhea, No nausea, No vomiting Genitourinary: No discharge, No dysuria : No LMP: Apr 07, 2018 Control/STD Prophylaxis: None Musculoskeletal: No back pain, No joint pain Past Nzmkgdr-Nroatt-Slozke Hx Patient Social History Alcohol Use: Regular Use Alcohol Beverage of Choice: Wine (1 bottle per day), Vodka Recreational Drug Use: No Smoking Status: Never a Smoker Recent Foreign Travel: No Contact w/Someone Who Travel: No Recent Hopitalizations: Yes Immunizations Up To Date Tetanus Booster (TDap): Unknown Date of Influenza Vaccine: Oct 05, 2015 Past Medical History Surgeries: Yes (wisdom teeth removal) Respiratory: No Cardiac: No Neurological: No Reproductive Disorders: No Sexually Transmitted Disease: No Genitourinary: No Gastrointestinal: No Musculoskeletal: No Endocrine: No HEENT: No Cancer: No Psychosocial: Yes Eating Disorder, Sleep Difficulties, Anxiety, Depression Integumentary: No Blood Disorders: No Family Medical History Alcoholism 19 MOTHER Thyroid disease 19 FATHER No Pertinent Family Hx Physical Exam Vital Signs - First Documented 04/17/18 06:58 Temp 98.2 Pulse 129 B/P (MAP) 120/92 (101) Pulse Ox 97 O2 Delivery Room Air Capillary Refill : Height, Weight, BMI Height: 5'6.00" Weight: 153lbs. 3.0oz. 69.481512iv; 24.7 BMI Method:Estimated General Appearance: WD/WN, other (anxious) HEENT: PERRL/EOMI, normal ENT inspection Neck: non-tender, full range of motion, normal inspection Respiratory: chest non-tender, lungs clear, normal breath sounds, no respiratory distress, no accessory muscle use Cardiovascular: normal peripheral pulses, regular rate, rhythm, no edema, no murmur, tachycardia Peripheral Pulses: 2+ Radial Pulses (R), 2+ Radial Pulses (L) Gastrointestinal: non tender, soft Neurologic/Psychiatric: alert, oriented x 3, other (anxious affect, constantly in motion.) Appearance/Memory: appropriate appearance, appropriate insight, no memory impairment; No denies illness Behavior/Eye Contact: cooperative, normal speech, avoids eye contact Thoughts/Hallucinations: normal thought pattern, no apparent hallucination; No delusions Skin: normal color, warm/dry Progress/Results/Core Measures Results/Orders Lab Results Laboratory Tests Test 04/17/18 07:15 04/17/18 07:31 Range/Units Urine Color KAL H Urine Clarity SLIGHTLY CLOUDY Urine pH 6 5-9 Urine Specific Waucoma 1.025 H 1.016-1.022 Urine Protein 2+ H NEGATIVE Urine Glucose (UA) NEGATIVE NEGATIVE Urine Ketones 1+ H NEGATIVE Urine Nitrite POSITIVE H NEGATIVE Urine Bilirubin NEGATIVE NEGATIVE Urine Urobilinogen 1 NORMAL MG/DL Urine Leukocyte Esterase 2+ H NEGATIVE Urine RBC (Auto) 2+ H NEGATIVE Urine RBC RARE /HPF Urine WBC 25-50 H /HPF Urine Squamous Epithelial Cells 5-10 /HPF Urine Crystals NONE /LPF Urine Bacteria LARGE H /HPF Urine Casts NONE /LPF Urine Mucus SMALL H /LPF Urine Culture Indicated YES Urine Test NEGATIVE NEGATIVE Urine Opiates Screen NEGATIVE NEGATIVE Urine Oxycodone Screen NEGATIVE NEGATIVE Urine Methadone Screen NEGATIVE NEGATIVE Urine Propoxyphene Screen NEGATIVE NEGATIVE Urine Barbiturates Screen NEGATIVE NEGATIVE Ur Tricyclic Antidepressants Screen NEGATIVE NEGATIVE Urine Phencyclidine Screen NEGATIVE NEGATIVE Urine Amphetamines Screen NEGATIVE NEGATIVE Urine Methamphetamines Screen NEGATIVE NEGATIVE Urine Benzodiazepines Screen NEGATIVE NEGATIVE Urine Cocaine Screen NEGATIVE NEGATIVE Urine Cannabinoids Screen NEGATIVE NEGATIVE White Blood Count 5.0 4.3-11.0 10^3/uL Red Blood Count 4.28 L 4.35-5.85 10^6/uL Hemoglobin 14.0 11.5-16.0 G/DL Hematocrit 39 35-52 % Mean Corpuscular Volume 91 80-99 FL Mean Corpuscular Hemoglobin 33 25-34 PG Mean Corpuscular Hemoglobin Concent 36 32-36 G/DL Red Cell Distribution Width 12.6 10.0-14.5 % Platelet Count 134 130-400 10^3/uL Mean Platelet Volume 9.7 7.4-10.4 FL Neutrophils (%) (Auto) 69 42-75 % Lymphocytes (%) (Auto) 22 12-44 % Monocytes (%) (Auto) 8 0-12 % Eosinophils (%) (Auto) 0 0-10 % Basophils (%) (Auto) 0 0-10 % Neutrophils # (Auto) 3.5 1.8-7.8 X 10^3 Lymphocytes # (Auto) 1.1 1.0-4.0 X 10^3 Monocytes # (Auto) 0.4 0.0-1.0 X 10^3 Eosinophils # (Auto) 0.0 0.0-0.3 10^3/uL Basophils # (Auto) 0.0 0.0-0.1 10^3/uL Sodium Level 137 135-145 MMOL/L Potassium Level 3.7 3.6-5.0 MMOL/L Chloride Level 100 98-107 MMOL/L Carbon Dioxide Level 22 21-32 MMOL/L Anion Gap 15 H 5-14 MMOL/L Blood Urea Nitrogen 9 7-18 MG/DL Creatinine 0.75 0.60-1.30 MG/DL Estimat Glomerular Filtration Rate > 60 BUN/Creatinine Ratio 12 Glucose Level 96 70-105 MG/DL Calcium Level 8.7 8.5-10.1 MG/DL Corrected Calcium 8.4 L 8.5-10.1 MG/DL Total Bilirubin 1.4 H 0.1-1.0 MG/DL Aspartate Amino Transf (AST/SGOT) 29 5-34 U/L Alanine Aminotransferase (ALT/SGPT) 21 0-55 U/L Alkaline Phosphatase 49 40-136 U/L Total Protein 6.9 6.4-8.2 GM/DL Albumin 4.4 3.2-4.5 GM/DL TSH [place] Testing 1.08 0.35-4.94 UIU/ML Salicylates Level < 5.0 L 5.0-20.0 MG/DL Acetaminophen Level < 10 L 10-30 UG/ML Serum Alcohol 112 H <10 MG/DL My Orders Orders - GIO DONATO Ekg Tracing (04/17/18 07:12) Lorazepam Tablet (Ativan Tablet) (04/17/18 07:15) Ua Culture If Indicated (04/17/18 07:14) Cbc With Automated Diff (04/17/18 07:14) Comprehensive Metabolic Panel (04/17/18 07:14) Alcohol (04/17/18 07:14) Drug Screen Stat (Urine) (04/17/18 07:14) Acetaminophen (04/17/18 07:14) Salicylate (04/17/18 07:14) Hcg,Qualitative Urine (04/17/18 07:14) Thyroid Analyzer (04/17/18 07:14) General/Regular (04/17/18 Breakfast) Thiamine Tablet (Vitamin B-1 Tablet) (04/17/18 07:30) Folic Acid Tablet (Folic Acid Tablet) (04/17/18 09:00) Urine Culture (04/17/18 07:15) Medications Given in ED Current Medications Medications Dose Ordered Sig/Carroll Route Start Time Stop Time Status Last Admin Dose Admin Lorazepam 0.5 mg ONCE ONCE PO 04/17/18 07:15 04/17/18 07:16 DC 04/17/18 08:06 0.5 MG Vital Signs/I&O 04/17/18 06:58 Temp 98.2 Pulse 129 B/P (MAP) 120/92 (101) Pulse Ox 97 O2 Delivery Room Air Progress Progress Note #1: Time: 07:26 Progress Note The patient's tachycardia and demeanor is concerning. I'm going to offer her something to eat, drink to challenge her see if she is having any nausea. I also offered her thiamine and folate. We'll check some labs and an EKG. Progress Note #2: Time: 08:29 Progress Note Patient is smiling more interactive and says she's feeling a little better after the Ativan. We will get a hold of [facility] saves line and they're going to give her a call back to help plug her into services between 10 and 11:30 which she says will be very helpful. They also mention that if she does not have insurance that since she is at [employer] student the [facility] would be available for counseling as well as medical support. Her apparent UTI would be a possible cause for her elevated heart rate. Urine drug screen was negative. Initial ECG Impression Date: Apr 17, 2018 Initial ECG Impression Time: 07:16 Initial ECG Rate: 98 Initial ECG Rhythm: Normal Sinus Initial ECG Intervals: Normal Initial ECG Impression: Normal Initial ECG Comparisson: Unchanged Comment Normal sinus rhythm. Departure Impression Primary Impression: Alcohol abuse Additional Impressions: Anxiety UTI (urinary tract infection) Qualified Codes: N30.00 - Acute cystitis without hematuria Disposition: 01 HOME, SELF-CARE Condition: Improved Departure-Patient Inst. Decision time for Depature: 08:32 Referrals: NO,LOCAL PHYSICIAN (PCP/Family) Primary Care Physician Patient Instructions: ALCOHOL AND SUBSTANCE ABUSE, Anxiety, Adult (DC) Add. Discharge Instructions: Expect a phone call this morning from the [facility] to help you find resources for mental health support as well as drug and alcohol counseling. You can also contact the doctors at [facility] or you can use [employer]'s [facility] as a referral Center and for counseling. A prescription for citalopram for just a couple weeks has been sent to the pharmacy to be taken once daily. A prescription for Macrobid, an antibiotic for your urinary tract infection to be taken twice a day for 7 days. If you begin to have thoughts of suicide or self-harm you should immediately contact someone you trust or return to the ER, [facility] or call the Save - line at [phone]). All discharge instructions reviewed with patient and/or family. Voiced understanding. Scripts Nitrofurantoin Macrocrystal (Nitrofurantoin) 100 Mg Capsule 100 MG PO BID, #14 CAP 0 Refills Prov: GIO DONATO 04/17/18 Citalopram Hydrobromide (Citalopram HBr) 10 Mg Tablet 10 MG PO DAILY for 14 Days, #14 TAB 0 Refills Prov: GIO DONATO 04/17/18 Work/School Note: School/Childcare Release Date Seen in the Emergency Department: Apr 17, 2018 Time Dismissed from Emergency Department: 09:00 Return to School: Apr 17, 2018 Restrictions: No Restrictions GIO DONATO Apr 17, 2018 07:19
[2018-04-17 07:26] LABS: HCG,QUALITATIVE URINE NEGATIVE (NEGATIVE)
[2018-04-17] MEDS ORDERED: THIAMINE 100 MG (VITAMIN B-1) TAB PO ONE (07:30)
[2018-04-17 07:34] LABS: AMPHETAMINE SCREEN, URINE NEGATIVE (NEGATIVE); BARBITURATE SCREEN URINE NEGATIVE (NEGATIVE); BENZODIAZEPINES SCREEN URINE NEGATIVE (NEGATIVE); CANNABINOID SCREEN, URINE NEGATIVE (NEGATIVE); COCAINE SCREEN URINE NEGATIVE (NEGATIVE); METHADONE STAT NEGATIVE (NEGATIVE); METHAMPHETAMINE SCREEN URINE S NEGATIVE (NEGATIVE); OPIATE SCREEN URINE NEGATIVE (NEGATIVE); OXYCODONE STAT NEGATIVE (NEGATIVE); PROPOXYPHENE STAT NEGATIVE (NEGATIVE); TRICYCLIC ANTIDEPRESSANTS SCRE NEGATIVE (NEGATIVE)
[2018-04-17 07:38] LABS: BILIRUBIN,URINE NEGATIVE (NEGATIVE); CLARITY,URINE SLIGHTLY CLOUDY; COLOR,URINE AMBER; GLUCOSE, URINE (UA) NEGATIVE (NEGATIVE); KETONES,URINE 1+ (NEGATIVE); LEUKOCYTE ESTERASE ,URINE 2+ (NEGATIVE); NITRITE,URINE POSITIVE (NEGATIVE); PH,URINE 6 (5-9); PROTEIN,URINE 2+ (NEGATIVE); UROBILINOGEN,URINE 1 MG/DL (NORMAL)
[2018-04-17 07:40] LABS: BASOPHILS % (AUTO) 0 % (0-10); EOSINOPHILS % (AUTO) 0 % (0-10); HEMATOCRIT 39 % (35-52); LYMPHOCYTES # (AUTO) 1.1 X 10^3 (1.0-4.0); LYMPHOCYTES % (AUTO) 22 % (12-44); MEAN CORPUSCULAR HEMOGLOBIN 33 PG (25-34); MEAN CORPUSCULAR HGB CONC 36 G/DL (32-36); MEAN CORPUSCULAR VOLUME 91 FL (80-99); MEAN PLATELET VOLUME 9.7 FL (7.4-10.4); MONOCYTES # (AUTO) 0.4 X 10^3 (0.0-1.0); MONOCYTES % (AUTO) 8 % (0-12); NEUTROPHILS # (AUTO) 3.5 X 10^3 (1.8-7.8); NEUTROPHILS % (AUTO) 69 % (42-75); PLATELET COUNT 134 10^3/uL (130-400); RED BLOOD COUNT 4.28 10^6/uL (4.35-5.85); RED CELL DISTRIBUTION WIDTH 12.6 % (10.0-14.5)
[2018-04-17 07:48] LABS: BACTERIA,URINE LARGE /HPF; RBC,URINE RARE /HPF; WBC,URINE 25-50 /HPF
[2018-04-17 08:03] LABS: ALANINE AMINOTRANSFERASE 21 U/L (0-55); ALBUMIN 4.4 GM/DL (3.2-4.5); ALKALINE PHOSPHATASE 49 U/L (40-136); BILIRUBIN,TOTAL 1.4 MG/DL (0.1-1.0); BUN/CREATININE RATIO 12; CALCIUM 8.7 MG/DL (8.5-10.1); CARBON DIOXIDE 22 MMOL/L (21-32); CHLORIDE 100 MMOL/L (98-107); CREATININE SERUM 0.75 MG/DL (0.60-1.30); GFR ESTIMATED > 60; GLUCOSE 96 MG/DL (70-105); POTASSIUM 3.7 MMOL/L (3.6-5.0); SALICYLATE < 5.0 MG/DL (5.0-20.0); SODIUM 137 MMOL/L (135-145); TOTAL PROTEIN 6.9 GM/DL (6.4-8.2)
[2018-04-17 08:05] LABS: ACETAMINOPHEN < 10 UG/ML (10-30)
[2018-04-17] MEDS ORDERED: NITR100C PO (08:37)
[2018-04-17] MEDS ORDERED: CITA10TA7 PO (08:37)
[2018-04-17] MEDS ORDERED: FOLIC ACID 1 MG TAB PO SCH (09:00)
[2018-04-17 09:03] VITALS: BP 111/95
== END 2018-04-17 09:03 | disposition home or self-care (01) ==
LOC: EDUNIT# 06:49 → ER 06:52
DX: F41.9 Anxiety disorder, unspecified (principal); F10.10 Alcohol abuse, uncomplicated; N39.0 Urinary tract infection, site not specified; F32.9 Major depressive disorder, single episode, unspecified; Z88.5 Allergy status to narcotic agent
CPT/HCPCS: 36415; 80053; 80306; 80320; 80329; 81000; 84443; 84703; 85025; 87077; 87088; 87186; 93005

== ENCOUNTER → 2021-01-05 | Outpatient (CLI) | payer OTHER ==
[~2021-01-05] MED LIST changes: +CITA10TA7 PO; +NITR100C PO
--- NOTE | 2021-01-05 17:05 | Diagnostic Imaging Report ---
PROCEDURE: US Non-ob pelvis comp/trans. TECHNIQUE: Multiple realtime grayscale images were obtained of the pelvis in various projections endovaginally. Transabdominal imaging was also performed. INDICATION: Infertility associated with anovulation. CORRELATION STUDY: 11/07/2017 FINDINGS: UTERUS: 7.8 x 4.2 x 5.3 cm. The uterus appears unremarkable. ENDOMETRIUM: Upper limits normal in thickness at 12 mm. RIGHT OVARY: 4.8 x 2.8 x 4.3 cm -Cyst at 2.4 x 2.5 x 3.1 cm -Cyst at 1.2 x 2.2 x 2.3 cm -Small cyst at 1.0 x 0.6 cm -3 additional subcentimeter follicles present. LEFT OVARY: 2.7 x 2.0 x 1.7 cm There are 2 subcentimeter follicles at the left ovary. No dominant cyst. Blood flow is demonstrated to the ovaries. No significant free pelvic fluid. IMPRESSION: 1. 3 small cysts right ovary. No significant cyst of the left ovary. Dictated by: Dictated on workstation # [id number]
== END ==
LOC: RAD 15:15
PROVIDERS: ATTEND Obstetrics & Gynecology
DX: N97.0 Female infertility associated with anovulation (principal); N83.201 Unspecified ovarian cyst, right side
CPT/HCPCS: 76830; 76856

== ENCOUNTER 2021-03-14 05:38 | Outpatient (CLI) | payer OTHER ==
[~2021-03-14] VITALS: Ht 167.7 cm; Wt 62.7 kg
[2021-03-14] MEDS ORDERED: CLON0.5T4 PO (09:33)
[2021-03-14] MEDS ORDERED: LETR2.5T6 PO (09:33)
== END 2021-03-14 09:42 | disposition home or self-care (01) ==
LOC: PREOP 05:38
PROVIDERS: ATTEND Obstetrics & Gynecology
DX: Z01.818 Encounter for other preprocedural examination (principal)

== ENCOUNTER 2021-03-21 08:25 | Day surgery (SDC) | payer OTHER ==
[2021-03-21] VITALS (11 sets, daily range): BP systolic 96–109; BP diastolic 55–75
[~2021-03-21] VITALS: Ht 167.7 cm; Wt 62.7 kg
[~2021-03-21 08:25] MED LIST changes: +CLON0.5T4 PO; +LETR2.5T6 PO
[2021-03-21] MEDS ORDERED: BUPIVACAINE 0.25% 30 ML (SENSORCAINE) VIAL ONE (08:47)
[2021-03-21] MEDS ORDERED: METHYLENE BLUE 0.5% (PROVAYBLUE) 50 mg/10 ml vial IV ONE (08:47)
--- NOTE | 2021-03-21 08:50 | Progress Note-Pre Operative ---
Pre-Operative Progress Note H&P Reviewed The H&P was reviewed, patient examined and no changes noted. Date Seen by Provider: Mar 21, 2021 Time Seen by Provider: 08:45 Date H&P Reviewed: Mar 21, 2021 Time H&P Reviewed: 08:45 Pre-Operative Diagnosis: CPP, Dyspareunia JOHANNA COLLINS DO Mar 21, 2021 08:50
[2021-03-21] MEDS ORDERED: LIDOCAINE PF 2% 5 ML (XYLOCAINE) VIAL ONE (08:59)
[2021-03-21] MEDS ORDERED: MIDAZOLAM 2 MG/2 ML (VERSED) VIAL ONE (08:59)
[2021-03-21] MEDS ORDERED: proPOfol 200 MG/20 ML (DIPRIVAN) VIAL IV ONE (08:59)
[2021-03-21] MEDS ORDERED: fentaNYL INJ 100 MCG/2 ML AMP ONE (08:59)
[2021-03-21] MEDS ORDERED: ROCURONIUM 10 MG/ML 5 ML SYRINGE IV ONE (08:59)
[2021-03-21 09:24] LABS: BASOPHILS % (AUTO) 1 % (0-10); EOSINOPHILS # (AUTO) 0.2 10^3/uL (0.0-0.3); EOSINOPHILS % (AUTO) 6 % (0-10); HEMATOCRIT 38 % (35-52); HEMOGLOBIN 13.1 g/dL (11.5-16.0); LYMPHOCYTES # (AUTO) 1.2 10^3/uL (1.0-4.0); LYMPHOCYTES % (AUTO) 31 % (12-44); MEAN CORPUSCULAR HEMOGLOBIN 33 pg (25-34); MEAN CORPUSCULAR HGB CONC 35 g/dL (32-36); MEAN CORPUSCULAR VOLUME 93 fL (80-99); MEAN PLATELET VOLUME 10.3 fL (9.0-12.2); MONOCYTES # (AUTO) 0.5 10^3/uL (0.0-1.0); MONOCYTES % (AUTO) 12 % (0-12); NEUTROPHILS % (AUTO) 51 % (42-75); PLATELET COUNT 179 10^3/uL (130-400); WHITE BLOOD COUNT 3.8 10^3/uL (4.3-11.0)
[2021-03-21] MEDS: LACTATED RINGERS 1,000 ML IV PRN ×2 (09:28→10:37)
[2021-03-21] MEDS ORDERED: ACHD5005 PO (10:09)
[2021-03-21] MEDS ORDERED: IBUP-1773 PO (10:09)
--- NOTE | 2021-03-21 10:10 | Discharge Inst-[facility] ---
Discharge Inst-[facility] Depart Medication/Instructions New, Converted or Re-Newed RX: RX on Chart Final Diagnosis PO Diagnostic laparoscopy Problems Reviewed?: Yes Consults/Follow Up Additional Follow Up: Yes Orders/Referrals Dr. Hooper in 7-10 days Activity Activity: Activity as Tolerated Driving Instructions: No Driving for 1 Week NO SMOKING: NO SMOKING Nothing Inside Vagina: No Douching, No Bonesteel, No Tampons Diet Discharge Diet: No Restrictions Symptoms to Report to : Bleeding Excessive, Pain Increased, Fever Over 101 Degrees F, Vaginal Bleeding Increase, Questions/Concerns For Any Problems or Questions: Contact Your Physician Skin/Wound Care Infection Signs and Symptoms: Increased Redness, Foul Odor of Wound, Increased Drainage, Skin Itchy or Has a Rash, Increased Swelling, Temperature Above 101 F Operative Area Clean and Dry: Keep Incision Clean/Dry Stitches/Rye/Dermabond: Dermabond, Care of Stitches Bathing Instructions: JOHANNA Medina DO Mar 21, 2021 10:10 am
[2021-03-21] MEDS ORDERED: HYDROcodone/APAP 5 MG/325 MG (LORTAB) TAB PO PRN (10:15)
[2021-03-21] MEDS ORDERED: D5 LR IV SOLUTION 1,000 ML IV SCH (10:15)
[2021-03-21] MEDS ORDERED: ONDANSETRON 4 MG/2 ML (SDV) Z0FRAN IVP PRN (10:15)
[2021-03-21] MEDS ORDERED: KETOROLAC 30 MG/ML VIAL IVP ONE (10:15)
[2021-03-21] MEDS ORDERED: ONDANSETRON 4 MG/2 ML (SDV) Z0FRAN ONE (10:36)
[2021-03-21] MEDS ORDERED: SEVOFLURANE (ULTANE) 15 ML INHAL SOLN ONE (10:36)
[2021-03-21] MEDS ORDERED: GLYCOPYRROLATE 0.2 MG/ML (ROBINUL) 2 ML VIAL ONE (10:39)
[2021-03-21] MEDS ORDERED: NEOSTIGMINE 3 MG/3 ML VIAL ONE (10:39)
[2021-03-21] MEDS ORDERED: KETOROLAC 30 MG/ML VIAL ONE (11:03)
--- NOTE | 2021-03-21 23:18 | OPERATIVE REPORT ---
DATE OF SERVICE: PREOPERATIVE DIAGNOSES: 1. A 31-year-old female with chronic pelvic pain. 2. Dyspareunia. POSTOPERATIVE DIAGNOSES: 1. A 31-year-old female with chronic pelvic pain. 2. Dyspareunia. 3. Patent bilateral fallopian tubes. PROCEDURE: Diagnostic laparoscopy with chromotubation. SURGEON: Johanna Collisn DO ANESTHESIA: LMA, general. ESTIMATED BLOOD LOSS: Minimal. URINE OUTPUT: 700 mL clear at the end of procedure. FLUIDS: 1000 mL lactated Ringer's solution. FINDINGS: Grossly normal-appearing external female genitalia. Normal cervix, grossly normal appearing fallopian tubes, ovaries and uterus. Grossly normal appearing upper abdominal anatomy. SPECIMEN SENT: None. INDICATIONS FOR PROCEDURE: This 31-year-old female is a patient who had sought my care to discuss fertility; however, was also upon further questioning having some pain with intercourse and had underlying suspicion for possible endometriosis. She reports the pain has been worsening over the past 10 years. I discussed with the patient performing diagnostic laparoscopy could offer both curative and diagnostic measure including chromotubation to ensure tubal patency. Risks of procedure were discussed with the patient in detail and after all of her questions were answered with her present, consent was obtained, the patient was taken to the operating room. OPERATIVE REPORT IN DETAIL: Once in the operating room, general anesthesia was found to be adequate. She was placed in the dorsal lithotomy position, prepped and draped in normal sterile fashion. A timeout was performed. Ibanez catheter was placed using sterile technique. A weighted speculum inserted to the patient's vagina. Right angle retractor was used to visualize the cervix. It was grasped at 12 o'clock position using a long Allis clamp. I then gently sound the uterine cavity that was found to be 8 cm. I placed a [employer] uterine manipulator to a depth of 8 cm deploying the balloon within the endometrial cavity, removed all the other instruments from the patient's vagina, performed change of gloves and took my attention to the abdomen, where at the midclavicular line about 1 fingerbreadth subcostal on the left side, I placed the Veress needle through the skin and intraperitoneal placement was confirmed using saline drop test. An opening pressure of 2 mmHg was noted, proceeded to maximum pressure of 15 mmHg, at which point I placed an infraumbilical trocar by infiltrating the skin and making a 5 mm incision with a knife. I placed the trocar within that incision and I am able to confirm intraperitoneal placement using the laparoscope. A brief scan of the upper abdominal anatomy appears to be grossly normal. There is no evidence of damage upon my entry site of the Veress needle and the Veress was then removed. I then have the patient placed in steep Trendelenburg and made visualize all my pelvic anatomy was defined in my findings above. There was no other gross abnormalities noted of the pelvic peritoneum or the ovaries bilaterally. I then placed methylene blue dye through the Kronner uterine manipulator, approximately 30 mL were pushed through the manipulator and bilateral tubal patency was demonstrated with dye spilling from the distal ampullary portion of the fallopian tubes. After which, the pelvis was copiously irrigated using normal saline. There was no active bleeding noted from any site within the abdomen. I then had the patient taken out of steep Trendelenburg where I released insufflation through the infraumbilical trocar site and introduced 10 mL of 0.25% Marcaine into the peritoneal cavity for postoperative pain management. The skin was then reapproximated after the trocars removed using a Skin Affix and a Band-Aid was placed over that incision as well. The Kronner uterine manipulator was removed. The Ibanez catheter was removed at the end of the procedure. The patient tolerated the procedure well and sent to recovery area in stable condition. Lap and sponge counts were correct at the end of the procedure. Instrument counts correct as well. Job ID: [id number] DocumentID: [id number] Dictated Date: 03/21/2021 13:41:15 Farm Tractor Operator Date: 03/21/2021 23:16:54 Dictated By: JOHANNA COLLINS DO
--- NOTE | 2021-03-22 09:48 | Anesthesia-General Post-Op ---
General Significant Intra-Op Events Notes late entry 03/21/21 @ 1130 Patient Condition Mental Status/LOC: Same as Preop Cardiovascular: Satisfactory Nausea/Vomiting: Absent Respiratory: Satisfactory Pain: Controlled Complications: Absent Post Op Complications Complications None Follow Up Care/Instructions Patient Instructions None needed. Anesthesia/Patient Condition Patient Condition Patient is doing well, no complaints, stable vital signs, no apparent adverse anesthesia problems. No complications reported per nursing. JOSEPH VALDOVINOS CRNA Mar 22, 2021 09:48
== END 2021-03-21 13:03 | disposition home or self-care (01) ==
LOC: SDC 08:25
PROVIDERS: ATTEND Obstetrics & Gynecology
DX: N94.10 Unspecified dyspareunia (principal); N72 Inflammatory disease of cervix uteri; N88.8 Other specified noninflammatory disorders of cervix uteri; N87.9 Dysplasia of cervix uteri, unspecified; G89.29 Other chronic pain; F41.9 Anxiety disorder, unspecified; F32.9 Major depressive disorder, single episode, unspecified; Z79.899 Other long term (current) drug therapy; F17.210 Nicotine dependence, cigarettes, uncomplicated
CPT/HCPCS: 36415; 84703; 85025; 86850; 86900; 86901; 87081

== ENCOUNTER 2022-05-03 04:57 | Emergency (ER) | payer BC ==
[~2022-05-03] VITALS: Ht 168 cm; Wt 66.0 kg
[~2022-05-03 04:57] MED LIST changes: +ACHD5005 PO; -CITA10TA7 PO; +CITA10TA9 PO; +IBUP-1773 PO
[2022-05-03] MEDS ORDERED: ESTR2TAB3 (05:11)
[2022-05-03] MEDS ORDERED: PROG50VI2 (05:11)
[2022-05-03] MEDS ORDERED: DESO1TAB89 (05:11)
[2022-05-03] MEDS ORDERED: NS IV 1000 ML 1,000 ML IV SCH (05:15)
[2022-05-03] MEDS ORDERED: KETOROLAC 30 MG/ML VIAL IVP ONE (05:15)
--- NOTE | 2022-05-03 05:19 | ED GU-Female ---
General Chief Complaint: Abdominal/GI Problems Stated Complaint: LOWER ABD PX Source: patient Exam Limitations: no limitations (GIO DONATO) History of Present Illness Date Seen by Provider: May 03, 2022 Time Seen by Provider: 04:59 Initial Comments Patient to the ER by private conveyance from home with chief complaint of 3 weeks of progressively worsening dysuria, suprapubic abdominal discomfort and now some breakthrough spotting. She has recently been undergoing hormone treatment for in vitro fertilization with Dr. Dupont at [facility]. She has not had a urinalysis. She was taking ibuprofen 400 mg with the last dose before she went to bed last night around 8 or 9:00. She does not feel like it is adequately treating her pain. She has been using control for at least the last 3 months without cycling or having a period. She has had constipation without diarrhea. No nausea vomiting fevers chills cough shortness of air or chest pain. No history of abdominal surgeries except for a laparoscopy looking for endometriosis which was not seen. (GIO DONATO) Allergies and Home Medications Allergies Coded Allergies: No Known Drug Allergies (Unverified , 03/14/21) Patient Home Medication List Home Medication List Reviewed: Yes (GIO DONATO) Desogestrel-Ethinyl Estradiol (Enskyce 28 Tablet) 0.15 Mg-0.03 Mg Tablet, (Reported) Entered as Reported by: HUDSON SENIOR on 05/03/22510 Last Action: New Order Estradiol (Estradiol Tablet) 2 Mg Tablet, (Reported) Entered as Reported by: HUDSON SENIOR on 05/03/22510 Last Action: New Order Progesterone (Progesterone in Oil) 50 Mg/Ml Vial, (Reported) Entered as Reported by: HUDSON SENIOR on 05/03/22510 Last Action: New Order Discontinued Medications Clonazepam (Clonazepam) 0.5 Mg Tablet, 0.5 MG PO DAILY, (Reported) Discontinued Reason: No Longer Taking Entered as Reported by: DILMA DAVIS on 03/14/21 0933 Last Action: Discontinued Hydrocodone Bit/Acetaminophen (HYDROcodone/APAP 5 MG/325 MG TAB) 1 Tab Tab, 1-2 EA PO Q6H PRN for PAIN-MODERATE (5-7) Discontinued Reason: No Longer Taking Prescribed by: JOHANNA COLLINS on 03/21/21 1010 Last Action: Discontinued Ibuprofen (Ibuprofen) 600 Mg Tablet, 600 MG PO Q6H Discontinued Reason: No Longer Taking Prescribed by: JOHANNA COLLINS on 03/21/21 1009 Last Action: Discontinued Letrozole (Letrozole) 2.5 Mg Tablet, 5 MG PO UD, (Reported) Discontinued Reason: No Longer Taking Entered as Reported by: DILMA Beau RYAN on 03/14/21 0933 Last Action: Discontinued Review of Systems Review of Systems Constitutional: No chills, No diaphoresis EENTM: No ear discharge, No ear pain Respiratory: No cough, No hemoptysis Cardiovascular: No chest pain, No palpitations Gastrointestinal: abdominal pain (Suprapubic), constipation; No nausea Genitourinary: see HPI, burning, dysuria; denies frequency, denies flank pain Musculoskeletal: No back pain, No joint pain (GIO DONATO) All Other Systemes Reviewed Negative Unless Noted: Yes (GIO DONATO) Past Qmizaqp-Rttkwx-Yvhlvv Hx Patient Social History Tobacco Use?: No Substance use?: No Alcohol Use?: No Pt feels they are or have been: No (GIO DONATO) Immunizations Up To Date Tetanus Booster (TDap): Unknown (GIO DONATO) Seasonal Allergies Seasonal Allergies: No (GIO DONATO) Past Medical History Surgery/Hospitalization HX: DENTAL, LAPROSCOPIC ABDOMINAL SX, SLEEP DIFFICULTIES, ANXIETY, DEPRESSION, EATING D/O Surgeries: Yes (wisdom teeth removal) Respiratory: No Cardiac: No Neurological: No Reproductive Disorders: No Female Reproductive Disorders: Denies Sexually Transmitted Disease: No Genitourinary: No Gastrointestinal: No Musculoskeletal: No Endocrine: No HEENT: No Cancer: No Psychosocial: Yes Eating Disorder, Sleep Difficulties, Anxiety, Depression Integumentary: Yes Eczema Blood Disorders: No (GIO DONATO) Family Medical History Alcoholism 19 MOTHER Thyroid disease 19 FATHER No Pertinent Family Hx (GIO DONATO) Physical Exam Vital Signs Vital Signs - First Documented 05/03/22 05:05 Temp 36.0 Pulse 98 Resp 16 B/P (MAP) 126/91 (103) Pulse Ox 98 O2 Delivery Room Air (OTILIA JEWELL MD) Vital Signs Capillary Refill : (GIO DONATO) Height, Weight, BMI Height: 5'6.00" Weight: 145lbs. 3.0oz. 65.462499wd; 22.29 BMI Method:Stated General Appearance: WD/WN, no apparent distress HEENT: PERRL/EOMI, pharynx normal Cardiovascular: normal peripheral pulses, regular rate, rhythm Respiratory: no respiratory distress, no accessory muscle use Gastrointestinal: normal bowel sounds, soft, no organomegaly, tenderness (Bilateral lower quadrants without McBurney's point rebound tenderness. No mesenteric signs, Rovsing sign etc. Suprapubic tenderness to palpation.) Extremities: normal range of motion, normal capillary refill Neurologic/Psychiatric: alert, normal mood/affect, oriented x 3 (GIO DONATO) Progress/Results/Core Measures Suspected Sepsis SIRS Temperature: Pulse: Respiratory Rate: Laboratory Tests 05/03/22 05:20: White Blood Count 4.3 Blood Pressure / Mean: Laboratory Tests 05/03/22 05:20: Creatinine 0.98, Platelet Count 250, Total Bilirubin 0.5 (GIO DONATO) Results/Orders Lab Results Laboratory Tests Test 05/03/22 05:15 05/03/22 05:20 Range/Units Urine Color YELLOW Urine Clarity CLEAR Urine pH 6.0 5-9 Urine Specific [place] >=1.030 1.016-1.022 Urine Protein NEGATIVE NEGATIVE Urine Glucose (UA) NEGATIVE NEGATIVE Urine Ketones NEGATIVE NEGATIVE Urine Nitrite NEGATIVE NEGATIVE Urine Bilirubin NEGATIVE NEGATIVE Urine Urobilinogen 0.2 < = 1.0 MG/DL Urine Leukocyte Esterase NEGATIVE NEGATIVE Urine RBC (Auto) 1+ H NEGATIVE Urine RBC NONE /HPF Urine WBC 0-2 /HPF Urine Squamous Epithelial Cells 0-2 /HPF Urine Crystals NONE /LPF Urine Bacteria FEW H /HPF Urine Casts NONE /LPF Urine Mucus SMALL H /LPF Urine Culture Indicated NO White Blood Count 4.3 4.3-11.0 10^3/uL Red Blood Count 3.68 L 3.80-5.11 10^6/uL Hemoglobin 13.0 11.5-16.0 g/dL Hematocrit 38 35-52 % Mean Corpuscular Volume 102 H 80-99 fL Mean Corpuscular Hemoglobin 35 H 25-34 pg Mean Corpuscular Hemoglobin Concent 35 32-36 g/dL Red Cell Distribution Width 11.1 10.0-14.5 % Platelet Count 250 130-400 10^3/uL Mean Platelet Volume 9.2 9.0-12.2 fL Immature Granulocyte % (Auto) 0 % Neutrophils (%) (Auto) 59 42-75 % Lymphocytes (%) (Auto) 27 12-44 % Monocytes (%) (Auto) 9 0-12 % Eosinophils (%) (Auto) 4 0-10 % Basophils (%) (Auto) 1 0-10 % Neutrophils # (Auto) 2.5 1.8-7.8 10^3/uL Lymphocytes # (Auto) 1.2 1.0-4.0 10^3/uL Monocytes # (Auto) 0.4 0.0-1.0 10^3/uL Eosinophils # (Auto) 0.2 0.0-0.3 10^3/uL Basophils # (Auto) 0.0 0.0-0.1 10^3/uL Immature Granulocyte # (Auto) 0.0 0.0-0.1 10^3/uL Sodium Level 140 135-145 MMOL/L Potassium Level 4.5 3.6-5.0 MMOL/L Chloride Level 104 98-107 MMOL/L Carbon Dioxide Level 21 21-32 MMOL/L Anion Gap 15 H 5-14 MMOL/L Blood Urea Nitrogen 16 7-18 MG/DL Creatinine 0.98 0.60-1.30 MG/DL Estimat Glomerular Filtration Rate 79 BUN/Creatinine Ratio 16 Glucose Level 114 H 70-105 MG/DL Calcium Level 9.1 8.5-10.1 MG/DL Corrected Calcium 8.9 8.5-10.1 MG/DL Total Bilirubin 0.5 0.1-1.0 MG/DL Aspartate Amino Transf (AST/SGOT) 16 5-34 U/L Alanine Aminotransferase (ALT/SGPT) 14 0-55 U/L Alkaline Phosphatase 29 L 40-136 U/L C-Reactive Protein High Sensitivity 0.20 0.00-0.50 MG/DL Total Protein 6.9 6.4-8.2 GM/DL Albumin 4.2 3.2-4.5 GM/DL Serum Test, Qualitative NEGATIVE NEGATIVE (OTILIA JEWELL MD) My Orders Orders - OTILIA JEWELL MD Hcg,Qualitative Serum (05/03/22 06:06) Abdomen/Kub 1view (05/03/22 06:30) (OTILIA JEWELL MD) Medications Given in ED Current Medications Medications Dose Ordered Sig/Carroll Route Start Time Stop Time Status Last Admin Dose Admin Ketorolac Tromethamine 30 mg ONCE ONCE IVP 05/03/22 05:15 05/03/22 05:17 DC 05/03/22 05:23 30 MG (OTILIA JEWELL MD) Vital Signs/I&O 05/03/22 05:05 Temp 36.0 Pulse 98 Resp 16 B/P (MAP) 126/91 (103) Pulse Ox 98 O2 Delivery Room Air (OTILIA JEWELL MD) Vital Signs/I&O Capillary Refill : (GIO DONATO) Progress Note #1: Time: 05:16 Progress Note Suspect UTI versus other. Endometriosis unlikely. Her pain is not lateralizing so ovarian cyst or torsion is much less likely. Plan to get some basic labs so that we can give her a round of Toradol for her discomfort and if necessary IV Rocephin. Liter of fluids for her mild dehydrated state which was probably contributing to her constipation. Her breakthrough vaginal bleeding may be related to taking control and not allowing herself to cycle. We will recommend she follow-up with her process designer for advice on this. Progress Note #2: Time: 06:12 Progress Note .Urinalysis is largely unremarkable. Suspect follicular cysts could be the source of her pain. Could consider ultrasound of the pelvis. We will turn over care to Dr. Stringer. (GIO DONATO) Progress Note : Time: 07:09 Progress Note Work-up was relatively unremarkable. I discussed opportunities for further evaluation including ultrasound and plain x-ray to evaluate for constipation or other etiologies of her pain. Patient was agreeable to x-ray. No significant constipation was identified. She was nontender on my reexamination. Because this is a lingering problem over several weeks, serum hCG was negative, and she is not tender on examination, ultrasound was not felt to be an emergent need. Patient chose to defer ultrasound to the outpatient setting and did not want to wait for ultrasound in the ER. (OTILIA JEWELL MD) Diagnostic Imaging Diagonstic Imaging: Xray Plain Films/CT/US/NM/MRI: abdomen, pelvis Comments X-ray viewed by me and report reviewed. See report below: NAME: MARCELLO MONTENEGRO [facility] REC#: [id number] PT STATUS: REG ER : 1990 PHYSICIAN: OTILIA JEWELL MD ADMIT DATE: 05/03/22/ER Draft Date of Exam:05/03/22 ABDOMEN/KUB 1VIEW Indication: Dysuria KUB 6:45 AM There is a moderate amount of stool in the colon. Bowel gas pattern is normal. There are no pathologic masses or calcifications. IMPRESSION: No acute abnormalities in the abdomen. Dictated on workstation # [id number] Dict: 05/03/22 0648 Trans: 05/03/22 0650 [facility] [id number] Interpreted by: ANTONI JAVED MD (OTILIA JEWELL MD) Transfer of Care Transfer of Care Time: 06:12 Care transferred to: Dr. Stringer (GIO DONATO) Departure Impression Primary Impression: Pelvic cramping Additional Impression: Pelvic pain Disposition: 01 HOME, SELF-CARE Condition: Stable Departure-Patient Inst. Decision time for Depature: 07:07 (OTILIA JEWELL MD) Referrals: NO,LOCAL PHYSICIAN (PCP/Family) Primary Care Physician Patient Instructions: Abdominal Pain, Adult ED Add. Discharge Instructions: Continue to drink plenty of clear liquids. Your x-ray did not show any significant evidence of constipation. However, you may continue using MiraLAX as needed for symptoms of constipation. Follow-up with your primary care provider and/or women's health specialist to further evaluate your pelvic discomfort. Return to care more promptly if you have worsening symptoms despite following these instructions or if you develop new symptoms such as fever. All discharge instructions reviewed with patient and/or family. Voiced understanding. GIO DONATO May 03, 2022 05:19 OTILIA JEWELL MD May 03, 2022 07:10
[2022-05-03 05:23] LABS: BILIRUBIN,URINE NEGATIVE (NEGATIVE); CLARITY,URINE CLEAR; COLOR,URINE YELLOW; GLUCOSE, URINE (UA) NEGATIVE (NEGATIVE); KETONES,URINE NEGATIVE (NEGATIVE); LEUKOCYTE ESTERASE ,URINE NEGATIVE (NEGATIVE); NITRITE,URINE NEGATIVE (NEGATIVE); PROTEIN,URINE NEGATIVE (NEGATIVE)
[2022-05-03 05:30] LABS: BASOPHILS % (AUTO) 1 % (0-10); EOSINOPHILS # (AUTO) 0.2 10^3/uL (0.0-0.3); EOSINOPHILS % (AUTO) 4 % (0-10); HEMATOCRIT 38 % (35-52); LYMPHOCYTES # (AUTO) 1.2 10^3/uL (1.0-4.0); LYMPHOCYTES % (AUTO) 27 % (12-44); MEAN CORPUSCULAR HEMOGLOBIN 35 pg (25-34); MEAN CORPUSCULAR HGB CONC 35 g/dL (32-36); MEAN CORPUSCULAR VOLUME 102 fL (80-99); MEAN PLATELET VOLUME 9.2 fL (9.0-12.2); MONOCYTES # (AUTO) 0.4 10^3/uL (0.0-1.0); MONOCYTES % (AUTO) 9 % (0-12); NEUTROPHILS # (AUTO) 2.5 10^3/uL (1.8-7.8); NEUTROPHILS % (AUTO) 59 % (42-75); PLATELET COUNT 250 10^3/uL (130-400); WHITE BLOOD COUNT 4.3 10^3/uL (4.3-11.0)
[2022-05-03 05:45] LABS: ALBUMIN 4.2 GM/DL (3.2-4.5); POTASSIUM 4.5 MMOL/L (3.6-5.0)
[2022-05-03 05:46] LABS: CALCIUM 9.1 MG/DL (8.5-10.1)
[2022-05-03 05:47] LABS: TOTAL PROTEIN 6.9 GM/DL (6.4-8.2)
[2022-05-03 05:49] LABS: BILIRUBIN,TOTAL 0.5 MG/DL (0.1-1.0)
[2022-05-03 05:51] LABS: CREATININE SERUM 0.98 MG/DL (0.60-1.30)
[2022-05-03 06:02] LABS: BACTERIA,URINE FEW /HPF; SQUAMOUS EPITHELIAL CELL,UR 0-2 /HPF; WBC,URINE 0-2 /HPF
--- NOTE | 2022-05-03 06:50 | Diagnostic Imaging Report ---
Indication: Dysuria KUB 6:45 AM There is a moderate amount of stool in the colon. Bowel gas pattern is normal. There are no pathologic masses or calcifications. IMPRESSION: No acute abnormalities in the abdomen. Dictated by: Dictated on workstation # [id number]
[2022-05-03 07:14] VITALS: BP 119/80
== END 2022-05-03 07:15 | disposition home or self-care (01) ==
LOC: EDUNIT# 04:57 → ER 05:02
DX: R10.2 Pelvic and perineal pain (principal)
CPT/HCPCS: 36415; 74018; 80053; 81000; 84703; 85025; 86141

== ENCOUNTER → 2022-09-25 | Outpatient (CLI) | payer OTHER ==
[~2022-09-25] MED LIST changes: +DESO1TAB89; +ESTR2TAB3; +PROG50VI2
--- NOTE | 2022-09-25 16:38 | Diagnostic Imaging Report ---
INDICATION: Anatomic survey. TECHNIQUE: Multiple Real-time grayscale images were obtained over the gravid uterus. COMPARISON: None. FINDINGS: Number: 1 Presentation: Breech Placenta: Anteriorly located without evidence of placenta previa. Amniotic Fluid: FRANCK is 16.3 cm. Single largest vertical pocket is 4.7 cm. Heart Rate: 149 BPM. biometrics are symmetric. They are consistent with an estimated gestational age of 19 weeks and 6 days. Therefore, there is an estimated due date based on this examination of 02/13/2023. Findings are consistent with clinical dating. The anatomic survey is grossly unremarkable. The stomach, four-chamber heart, kidneys, bladder, three-vessel cord, and the cord insertion are well seen. The spine and intracranial structures are grossly unremarkable. IMPRESSION: Single live intrauterine at approximately 19 weeks and 6 days with an ANA of 02/13/2023. These are consistent with clinical dates. No gross abnormalities are seen at this time. Biometrical measurements are as follows: Biparietal 4.54 cm, age 19 weeks 6 days. Head circumference 17.78 cm, age 20 weeks 2 days. Abdominal circumference 14.70 cm, age 20 weeks 0 days. Femur length 2.94 cm, age 19 weeks 1 days. Sonographic estimate age: 19 weeks 6 days. Sonographic estimated date of delivery: 02/13/2023. Estimated Weight: 304 gm (+/- 45 gm). LMP percentile: 49%. heart rate: 149 beats per minute. number: 1 of 1. Dictated by: Dictated on workstation # [id number]
== END ==
LOC: RAD 11:53
PROVIDERS: ATTEND Nurse Practitioner Women's Health
DX: Z34.02 Encounter for supervision of normal first pregnancy, second trimester (principal); Z3A.19 19 weeks gestation of pregnancy
CPT/HCPCS: 76805

== ENCOUNTER 2022-10-04 07:56 | Outpatient (CLI) | payer OTHER ==
[~2022-10-04] VITALS: Ht 170.2 cm; Wt 80.6 kg
[2022-10-04 08:29] VITALS: BP 107/66
[2022-10-04 08:48] LABS: BILIRUBIN,URINE NEGATIVE (NEGATIVE); CLARITY,URINE CLEAR; COLOR,URINE DARK YELLOW; GLUCOSE, URINE (UA) NEGATIVE (NEGATIVE); KETONES,URINE NEGATIVE (NEGATIVE); LEUKOCYTE ESTERASE ,URINE NEGATIVE (NEGATIVE); NITRITE,URINE NEGATIVE (NEGATIVE); PH,URINE 7.5 (5-9); PROTEIN,URINE TRACE (NEGATIVE)
[2022-10-04 08:56] LABS: BACTERIA,URINE FEW /HPF; WBC,URINE 0-2 /HPF
[2022-10-04 08:57] LABS: AMORPHOUS SEDIMENT,UR FEW AMOR PHOSPHATE /LPF
--- NOTE | 2022-10-04 09:47 | Diagnostic Imaging Report ---
INDICATION: Cramping and bleeding. Compared with study 09/25/2022. Duff gestation measures 20 weeks 6 days sonographic date of confinement 02/15/2023. Normal volume amniotic fluid with an FRANCK 13.5 present. The anterior placenta appeared normal. There is no abruption or previa and there is a regular heart rate at 139 bpm. The nondilated cervix measures 3.9 cm and there is 5.4 cm separation from the closed internal os and the caudal tip of the normal placenta. IMPRESSION: Duff viable IUP measured 20 weeks 6 days with no pathological finding identified. Dictated by: Dictated on workstation # [id number]
[2022-10-04 09:59] VITALS: BP 107/66
[2022-10-04] MEDS ORDERED: PREN1TAB19 PO (10:07)
[2022-10-04] MEDS ORDERED: DOXY25TA56 PO (10:11)
[2022-10-04] MEDS ORDERED: CLON0.5T4 PO (10:11)
[2022-10-04] MEDS ORDERED: SERT100T PO (10:11)
[2022-10-04 10:25] VITALS: BP 107/66
--- NOTE | 2022-10-05 07:49 | Physician Query-Final Dx ---
SARAH,10/05/22 0749: Clinic Account Progress/Dx Physician Query: Please give diagnosis Please include # weeks gestation Date of Service Oct 04, 2022 at 07:56 JOHANNA COLLINS DO 10/05/22 0754: Clinic Account Progress/Dx DIAGNOSIS: Diagnosis Vaginal Bleeding at 22 weeks gestation ,AugOct 05, 2022 07:49 JOHANNA COLLINS DO Oct 05, 2022 07:54
== END 2022-10-04 10:25 | disposition home or self-care (01) ==
LOC: LDRP 07:56 → WSo 07:56
PROVIDERS: ATTEND Obstetrics & Gynecology
DX: O46.92 Antepartum hemorrhage, unspecified, second trimester (principal); Z3A.22 22 weeks gestation of pregnancy
CPT/HCPCS: 76815; 81000; 87088; 99213

== ENCOUNTER 2022-10-12 15:58 | Outpatient (CLI) | payer OTHER ==
[~2022-10-12] VITALS: Ht 167.7 cm; Wt 82.6 kg
[~2022-10-12 15:58] MED LIST changes: +DOXY25TA56 PO; +PREN1TAB19 PO; +SERT100T PO
[2022-10-12 16:19] LABS: BILIRUBIN,URINE NEGATIVE (NEGATIVE); CLARITY,URINE CLEAR; COLOR,URINE YELLOW; GLUCOSE, URINE (UA) NEGATIVE (NEGATIVE); KETONES,URINE NEGATIVE (NEGATIVE); LEUKOCYTE ESTERASE ,URINE NEGATIVE (NEGATIVE); NITRITE,URINE NEGATIVE (NEGATIVE); PH,URINE 6.5 (5-9); PROTEIN,URINE NEGATIVE (NEGATIVE)
[2022-10-12 16:24] VITALS: BP 113/70
[2022-10-12 16:26] LABS: BACTERIA,URINE FEW /HPF; RBC,URINE RARE /HPF; SQUAMOUS EPITHELIAL CELL,UR RARE /HPF
--- NOTE | 2022-10-16 09:19 | Physician Query-Final Dx ---
SARAH,10/16/22 0918: Clinic Account Progress/Dx Physician Query: Please give diagnosis Please include # weeks gestation Date of Service Oct 12, 2022 at 15:58 SCOTT MARKS DO 10/16/22 1459: Clinic Account Progress/Dx DIAGNOSIS: Diagnosis 22 week GA vaginal bleeding reassuring monitoring ,AugOct 16, 2022 09:18 SCOTT MARKS DO Oct 16, 2022 14:59
== END 2022-10-12 17:05 | disposition home or self-care (01) ==
LOC: LDRP 15:58 → WSo 15:58
PROVIDERS: ATTEND Family Medicine
DX: O46.92 Antepartum hemorrhage, unspecified, second trimester (principal); Z3A.22 22 weeks gestation of pregnancy
CPT/HCPCS: 81000; 87088; 99212

== ENCOUNTER 2022-12-28 20:41 | Outpatient (CLI) | payer OTHER ==
[~2022-12-28] VITALS: Ht 170.2 cm; Wt 88.1 kg
[2022-12-28 21:00] VITALS: BP 124/77
--- NOTE | 2022-12-28 21:24 | OB Triage Report ---
Standard Progress Note Progress Notes/Assess & Plan Date Seen by a Provider: December 28, 2022 Time Seen by a Provider: 21:00 Expected Date of Delivery: Feb 15, 2023 Gestational Age in Weeks: 33 Gestational Age in Days: 0 LMP/ANA Comment: Pt presents @ 33wk EGA with c/o decreased movement FHR 140 Reactive TOCOs none Progress/Assessment & Plan IUP @ 33wk decreased FM NST REACTIVE DC to home keep next appt. Final Diagnosis IUP @ 33wk decreased FM NST REACTIVE DC to home keep next appt. Diagnosis/Problems Diagnosis/Problems (1) Decreased movement Assessment & Plan: IUP @ 33wk decreased FM NST REACTIVE DC to home keep next appt. (2) 33 weeks gestation of Assessment & Plan: IUP @ 33wk decreased FM NST REACTIVE DC to home keep next appt. VERN OWUSU DO December 28, 2022 21:24
== END 2022-12-28 21:30 ==
LOC: WSo 20:41 → LDRP 20:42 → WSo 21:30
PROVIDERS: ATTEND Obstetrics & Gynecology
DX: O36.8190 Decreased fetal movements, unspecified trimester, not applicable or unspecified (principal); Z3A.00 Weeks of gestation of pregnancy not specified
CPT/HCPCS: 99212

== ENCOUNTER 2023-01-18 10:34 | Outpatient (CLI) | payer OTHER ==
[~2023-01-18] VITALS: Ht 170.2 cm; Wt 88.5 kg
[2023-01-18 11:00] VITALS: BP 107/73
[2023-01-18 11:04] LABS: BILIRUBIN,URINE NEGATIVE (NEGATIVE); CLARITY,URINE CLOUDY; COLOR,URINE YELLOW; GLUCOSE, URINE (UA) NEGATIVE (NEGATIVE); KETONES,URINE 1+ (NEGATIVE); LEUKOCYTE ESTERASE ,URINE 1+ (NEGATIVE); NITRITE,URINE NEGATIVE (NEGATIVE); PH,URINE 6.5 (5-9); PROTEIN,URINE TRACE (NEGATIVE)
[2023-01-18 11:14] LABS: BACTERIA,URINE LARGE /HPF; RBC,URINE RARE /HPF
[2023-01-18 11:15] LABS: AMORPHOUS SEDIMENT,UR FEW AMOR URATES /LPF
[2023-01-18 11:34] VITALS: BP 107/73
--- NOTE | 2023-01-18 11:58 | OB Triage Report ---
Standard Progress Note Progress Notes/Assess & Plan Date Seen by a Provider: Jan 18, 2023 Time Seen by a Provider: 11:40 Expected Date of Delivery: Mar 08, 2023 Gestational Age in Weeks: 33 Gestational Age in Days: 0 LMP/ANA Comment: IUP @ 33wk G1 presents to L&D with c/o spotting Labs reviewed (possible UTI) FHT 130s Reactive TOCOs none no active bleeding Diagnosis/Problems Diagnosis/Problems (1) 33 weeks gestation of Assessment & Plan: IUP @ 33wk DC to home Keep next appt (2) UTI (urinary tract infection) during Status: Acute Assessment & Plan: RX sent UCX pending (3) Vaginal bleeding Status: Acute Assessment & Plan: no active bleeding Precautions d/w pt VERN OWUSU DO Jan 18, 2023 11:58
[2023-01-18] MEDS ORDERED: CEPH500C PO (11:59)
== END 2023-01-18 11:45 | disposition home or self-care (01) ==
LOC: LDRP 10:34 → WSo 10:34
PROVIDERS: ATTEND Obstetrics & Gynecology
DX: O46.93 Antepartum hemorrhage, unspecified, third trimester (principal); Z3A.36 36 weeks gestation of pregnancy
CPT/HCPCS: 81000; 87088

== ENCOUNTER 2023-01-19 18:13 | Outpatient (CLI) | payer OTHER ==
[~2023-01-19] VITALS: Ht 170.2 cm; Wt 88.9 kg
[2023-01-19 18:40] VITALS: BP 113/79
[2023-01-19 18:49] LABS: BILIRUBIN,URINE NEGATIVE (NEGATIVE); CLARITY,URINE SL CLOUDY; COLOR,URINE YELLOW; GLUCOSE, URINE (UA) NEGATIVE (NEGATIVE); KETONES,URINE NEGATIVE (NEGATIVE); LEUKOCYTE ESTERASE ,URINE NEGATIVE (NEGATIVE); NITRITE,URINE NEGATIVE (NEGATIVE); PH,URINE 6.5 (5-9); PROTEIN,URINE NEGATIVE (NEGATIVE)
[2023-01-19 19:10] LABS: RBC,URINE RARE /HPF; WBC,URINE RARE /HPF
[2023-01-19 19:11] LABS: BACTERIA,URINE FEW /HPF
[2023-01-19 19:32] VITALS: BP 123/78
[2023-01-19 20:13] VITALS: BP 123/78
--- NOTE | 2023-01-20 09:08 | OB Triage Report ---
Standard Progress Note Progress Notes/Assess & Plan Date Seen by a Provider: Jan 19, 2023 Time Seen by a Provider: 23:00 Expected Date of Delivery: Feb 15, 2023 Gestational Age in Weeks: 36 Gestational Age in Days: 1 LMP/ANA Comment: As above Progress/Assessment & Plan @ 36 1/7 weeks presents to L&D for possible leakage of fluid, no large gush, denies bleeding. Nitrazine negative per RN, no fluid per vagina on pad or by exam. UA today negative. 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 Vital signs stable, Cervix 1.5 cm dilated and thick. Category I FHR tracing with no regular contractions. Patient not ruputured and not in labor. Released to home with routine labor precautions, follow up routine OB as scheduled, sooner prn. Final Diagnosis 36 weeks Not in labor NANY VUONG DO Jan 20, 2023 09:08
== END 2023-01-19 20:13 | disposition home or self-care (01) ==
LOC: LDRP 18:13 → WSo 18:13
PROVIDERS: ATTEND Obstetrics & Gynecology
DX: Z34.90 Encounter for supervision of normal pregnancy, unspecified, unspecified trimester (principal); Z3A.00 Weeks of gestation of pregnancy not specified
CPT/HCPCS: 81000

== ENCOUNTER 2023-01-28 14:24 | Outpatient (CLI) | payer OTHER ==
[~2023-01-28] VITALS: Ht 170 cm; Wt 87.8 kg
[2023-01-28 14:51] LABS: BILIRUBIN,URINE NEGATIVE (NEGATIVE); CLARITY,URINE CLOUDY; COLOR,URINE ORANGE; GLUCOSE, URINE (UA) NEGATIVE (NEGATIVE); KETONES,URINE TRACE (NEGATIVE); LEUKOCYTE ESTERASE ,URINE TRACE (NEGATIVE); NITRITE,URINE NEGATIVE (NEGATIVE); PH,URINE 6.5 (5-9); PROTEIN,URINE 1+ (NEGATIVE)
[2023-01-28 14:56] VITALS: BP 116/76
[2023-01-28 14:59] LABS: BACTERIA,URINE MODERATE /HPF; RBC,URINE >100 /HPF; WBC,URINE RARE /HPF
--- NOTE | 2023-01-28 20:14 | OB Triage Report ---
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 Patient still able to tolerate p.o. fluids, has not tried APAP, Zofran for her sx. Advised caution with Imodium in given little data for its use in . Patient also with complaints of sporadic spotting which RN states patient has had intermittently last couple of weeks. Cervix a few weeks ago 1 to 1.5 cm and long. Patient denies LOF. States has some diffuse low back pain aches, but no sx suggestive of renal colic. UA negative for UTI. VSS/AF. Category I FHR tracing per RN with irritability only. Cervix per RN on exam un changed from prior examinations with small amount of old blood on glove, no active bright red blood. Patient declined IV fluids and anti-emetics, will p.o. hydrate at home. A/P; Viral Syndrome 37 weeks Not in labor Paient released to home with labor precautions. Will p.o. hydrate at home. Return to L&D as needed. Otherwise follow up with her OB provider as scheduled routinely. No questions or concerns voiced. Final Diagnosis 37 weeks Viral Syndrome Not in Labor NANY VUONG DO Jan 28, 2023 20:14
== END 2023-01-28 15:35 | disposition home or self-care (01) ==
LOC: WSo 14:24 → LDRP 14:25 → WSo 15:35
PROVIDERS: ATTEND Obstetrics & Gynecology
DX: O21.9 Vomiting of pregnancy, unspecified (principal); Z3A.37 37 weeks gestation of pregnancy
CPT/HCPCS: 81000; 99213

== ENCOUNTER 2023-02-13 06:00 | Inpatient (IN) | payer OTHER ==
[2023-02-13] VITALS (70 sets, daily range): BP systolic 94–142; BP diastolic 51–87
[~2023-02-13] VITALS: Ht 170.2 cm; Wt 89.4 kg
--- OUTSIDE RECORDS SUMMARY | 2023-02-13 06:18 | XMS REPORT ---
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 Operator Name Role Phone HARJINDERELIGIO NHI Unavailable PROBLEMS Type Condition ICD9-CM Code CIV22-TI Code Onset Dates Condition S tatus W/U Status Risk SNOMED Code Notes Problem Bipolar II disorder F31.81 confirmed [id number] Problem Allergic rhinitis, unspecified seasonality, unspecifie d trigger J30.9 confirmed [id number] Problem Generalized anxiety disorder F41.1 [id number] AN GEN ANXIETY Problem Alcohol use disorder F10.99 confirmed [id number] last use Apr 2018 Problem Mixed obsessional thoughts and acts F42.2 c onfirmed [id number] Problem Panic disorder F41.0 confirmed [id number] ALLERGIES Allergen (clinical drug ingredient) Drug/Non Drug Allergy do cumented on EMR Reaction Allergy Type Onset Date Status Codeine makes her feel funny Drug Allergy Ac tive ENCOUNTERS from 1991 to 2023-01-13 Encounter Location Date Provider Diagnosis [place] [id number] [place] [address] Jan, NHI ROMERO Generalized anxiety disorder F41.1 ; Panic disorder F41.0 ; Alcohol use disorder F10.99 ; Mixed obsessional thoughts and acts F42.2 and Bipolar II disorder F31.81 IMMUNIZATIONS Vaccine Route Administration Date Status PRIVATE TDAP (BOOSTRIX) IM Intramuscular Jun 17, 2020 Adminis tered STATE FUNDED FLULUVAL QUAD 0.5ML 6 MONTHS AND UP 2018 IM Int ramuscular Aug 01, 2019 Administered STATE FUNDED FLULUVAL QUAD 0.5ML 6 MONTHS AND UP 2019 IM Int ramuscular Jun 17, 2020 Administered 1st Dose PFIZER, COVID-19, 0.3mL IM Intramuscular Aug 20, 2021 Administered PRIVATE FLULAVAL QUAD 0.5ML (6 MO AND UP) 2020 IM Intramuscular Aug 20, 2021 Administered SOCIAL HISTORY Sex Assigned At : Social History Observation Description Sex Assigned At Unknown Alcohol Screen (Audit-C) Question Answer Notes Did you have a drink containing alcohol in the past year? No Points 0 Interpretation Negative Sexual History Question Answer Notes Had sex in the past 12 months (vaginal, oral, or anal)? Yes Last menstrual period 01/25/2018 Have you ever had a Sexually transmitted disease? No with Men only Use protection? No PHQ2 Question Answer Notes In the last 2 weeks, how often have you had little interest or pleasure in doing things? Not at all In the last 2 weeks, how often have you been feeling down, depressed, or hopeless? Not at all Total PHQ2 Score 0 Tobacco use other than smoking: Question Answer Notes Are you an other tobacco user? No REASON FOR REFERRAL No Information VITAL SIGNS No information MEDICATIONS Medication SIG (Take, Route, Frequency, Duration) Notes Start Da te End Date Status clonazePAM 0.5 MG 1 tablet Orally daily prn anxiety for 28 days Jan, Active Zoloft 100 MG 1 tablet Orally Once a day for 30 days Active PROCEDURES No Information RESULTS No Results REASON FOR VISIT Psychiatric f/u MEDICAL (GENERAL) HISTORY Type Description Date Medical History Depression Medical History Anxiety Medical History Bulemia Medical History Alcohol abuse Surgical History No Surgical history information Hospitalization History panic attack; multiple ER visits as well r/t anxiety 2012 Hospitalization History [facility] [place] fo r suicide attempt and co- occuring alcohol abuse Aug 2016 Hospitalization History 3 nights detox at [facility] February? 2018 Hospitalization History ER visit for n/v s/p intoxication Au g 2018 Goals Section No Information Health Concerns No Information MEDICAL EQUIPMENT No Information MENTAL STATUS No Information FUNCTIONAL STATUS No Information ASSESSMENTS Encounter Date Diagnosis Assessment Notes Treatment Notes Treatm ent Clinical Notes Jan, Generalized anxiety disorder (ICD-10 - F 41.1) AN GEN ANXIETY Jan, Panic disorder (ICD-10 - F41.0) Jan, Alcohol use disorder (ICD-10 - F10.99) l ast use Apr 2018 Jan, Mixed obsessional thoughts and acts (ICD -10 - F42.2) Jan, Bipolar II disorder (ICD-10 - F31.81) PLAN OF TREATMENT Medication Medication Name Sig Start Date Stop Date clonazePAM 0.5 MG 1 tablet Orally daily prn anxiety for 28 days Jan, Zoloft 100 MG 1 tablet Orally Once a day for 30 days Next Appt Details 2 Months Reason: Provider Name:NHI ROMERO, 2023-02-01 08:20:00 AM, [address] [facility], [id number], [place], [address],
--- OUTSIDE RECORDS SUMMARY | 2023-02-13 06:18 | XMS REPORT | Clinical Summary ---
Author Author [facility] Organization [facility] Address Unknown Phone Unavailable Care Team Providers Care Conveyor Feeder Name Role Phone No Pcp, Na PCP Unavailable Source Comments Some departments are not documenting in the electronic medical record. If you d o not see the information that you expected, contact Release of Information in [facility] [employer] Information Management department at [phone] for further assistan ce in locating additional records.[facility] Allergies Not on File Medications Not on file Active Problems Not on file Social History Date Tobacco Use Types Packs/Day Years Used Smoking Tobacco: Never Assessed Date Recorded Alcohol Use Answer Alcohol Use Not on file Male: 9+ ounces (15+ Standard Drinks) per week Not o n file Threshold Female: 4.8+ ounces (8+ Standard Drinks) per week 0 Threshold Date Recorded Sex and Gender Information Value 12/16/2021 10:45 AM CDT Sex Assigned at Female 12/16/2021 10:45 AM CDT Gender Identity Female Sexual Orientation Not on file Last Filed Vital Signs Not on file Plan of Treatment Health Maintenance Due Date Last Done Comments HIV SCREENING 2006 DTAP/TDAP VACCINES (1 - 2009 Tdap) HEPATITIS C SCREENING 2009 PHYSICAL (COMPREHENSIVE) 2009 EXAM CERVICAL CANCER SCREENING 02/21/2012 COVID-19 VACCINE (2 - 10/15/2021 08/20/2021 Pfizer series) DEPRESSION SCREENING 08/06/2022 INFLUENZA VACCINE (#1) 2023 PNEUMOCOCCAL VACCINE 0-64 Aged Out No longer el igible based on patient's age to YRS complete this topic Results Not on filefrom Last 3 Months Care Teams Start Date End Date Conveyor Feeder Relationship Specialty 12/16/21 No Pcp, Na PCP - General
[2023-02-13] MEDS ORDERED: AMPICILLIN FOR IV USE 2,000 MG in NS (IVPB) 50 ML IV SCH (06:22)
[2023-02-13] MEDS ORDERED: LIDOCAINE/EPI 2% 1:200,00 (XYLOCAINE) 20 ML VIAL INJ PRN (06:30)
[2023-02-13 06:52] LABS: BASOPHILS % (AUTO) 0 % (0-10); EOSINOPHILS # (AUTO) 0.1 10^3/uL (0.0-0.3); EOSINOPHILS % (AUTO) 2 % (0-10); HEMATOCRIT 37 % (35-52); HEMOGLOBIN 12.9 g/dL (11.5-16.0); LYMPHOCYTES # (AUTO) 1.8 10^3/uL (1.0-4.0); LYMPHOCYTES % (AUTO) 25 % (12-44); MEAN CORPUSCULAR HEMOGLOBIN 33 pg (25-34); MEAN CORPUSCULAR HGB CONC 35 g/dL (32-36); MEAN CORPUSCULAR VOLUME 94 fL (80-99); MEAN PLATELET VOLUME 11.1 fL (9.0-12.2); MONOCYTES # (AUTO) 0.7 10^3/uL (0.0-1.0); MONOCYTES % (AUTO) 10 % (0-12); NEUTROPHILS # (AUTO) 4.4 10^3/uL (1.8-7.8); NEUTROPHILS % (AUTO) 62 % (42-75); PLATELET COUNT 191 10^3/uL (130-400); WHITE BLOOD COUNT 7.1 10^3/uL (4.3-11.0)
[2023-02-13 06:53] LABS: BILIRUBIN,URINE NEGATIVE (NEGATIVE); CLARITY,URINE CLOUDY; COLOR,URINE YELLOW; GLUCOSE, URINE (UA) NEGATIVE (NEGATIVE); KETONES,URINE NEGATIVE (NEGATIVE); LEUKOCYTE ESTERASE ,URINE 1+ (NEGATIVE); NITRITE,URINE NEGATIVE (NEGATIVE); PH,URINE 6.5 (5-9); PROTEIN,URINE NEGATIVE (NEGATIVE)
[2023-02-13] MEDS: D5 LR IV SOLUTION 1,000 ML IV SCH ×2 (07:03→15:06)
[2023-02-13 07:04] LABS: AMORPHOUS SEDIMENT,UR MOD AMOR URATES /LPF; BACTERIA,URINE LARGE /HPF
[2023-02-13] MEDS ORDERED: fentaNYL 2 mcg/ml BUPIVA 0.125 100 ML ONE (07:59)
[2023-02-13] MEDS ORDERED: OXYTOCIN PRE-MIX DRIP 500 ML IV SCH (08:00)
[2023-02-13] MEDS ORDERED: BUPIVACAINE 0.25% 10 ML (SENSORCAINE) VIAL ONE (08:34)
[2023-02-13] MEDS ORDERED: fentaNYL INJ 100 MCG/2 ML AMP ONE ×2 (08:34→22:54)
--- NOTE | 2023-02-13 08:45 | History & Physical-OB ---
OB - Chief Complaint & HPI Date/Time Date of Admission: Date of Admission: Feb 13, 2023 at 06:16 Date seen by a Provider: Feb 13, 2023 Time Seen by a Provider: 07:15 Chief Complaint/History OB-Reason for Admission/Chief: Induction of Labor Hx : 1 Hx Para: 0 Expected Date of Delivery: Feb 15, 2023 Gestational Age in Weeks: 39 Gestational Age in Days: 5 Admission Nurse Assessment Rev: Yes History of Labs A pos Antibody neg RI RPR NR HBsAg NR HIV NR GC neg GBS pos Allergies and Home Medications Allergies Coded Allergies: No Known Drug Allergies (Unverified , 03/14/21) Patient Home Medication List Home Medication List Reviewed: Yes Clonazepam (Clonazepam) 0.5 Mg Tablet, 0.5 MG PO DAILY, (Reported) Entered as Reported by: RENATA MITCHELL on 10/04/22 1011 Last Action: Reviewed Doxylamine Succinate (Unisom) 25 Mg Tablet, 25 MG PO DAILY, (Reported) Entered as Reported by: RENATA [place] on 10/04/22 1011 Last Action: Reviewed Vit/Iron Fumarate/FA ( Vitamins Tablet) 28 Mg Iron-800 Mcg Tablet, 1 EACH PO BIDPC, (Reported) Entered as Reported by: RENATA MIT[place]LL on 10/04/22 1007 Last Action: Reviewed Sertraline HCl (Zoloft) 100 Mg Tablet, 150 MG PO DAILY, (Reported) Entered as Reported by: RENATA [place] on 10/04/22 1011 Last Action: Reviewed OB - History Hx of Present Care: Yes Ultrasounds: Normal mid trimester US Obstetrical Complications: None Medical Complications: None Delivery History Hx Blood Disorders: No Patient Past Medical History nc Social History/Family History 2nd Hand Smoke Exposure: No Immunizations Tetanus Booster (TDap): Unknown OB - Admission Exam Physical Exam Vitals: Vital Signs 02/13/23 02/13/23 02/13/23 07:00 07:45 08:25 Temp 36.6 Pulse 95 Resp 18 B/P (MAP) 121/76 (91) Pulse Ox 97 O2 Delivery Room Air HEENT: NCAT Heart: Rhythm Normal Lungs: Clear Abdomen: Gravid Extremities: Normal Reflexes: Normal Cervical Dilatation: 3cm Effacement: 75% Station: -1 Membranes: Intact Heart Rate: 130's Accelerations: Accelerations Present Decelerations: No Decelerations Short Term Variability: Present Longterm Variability: Absent (0-2) Contractions on Admission: 6-10 Minutes Apart Intensity: Mild Vang Scoring Tool (Modified) Dilation (cm): 3-4cm (2) Effacement (%): 51-79% (2) Descent/Station: -1,0 (2) Cervix Consistency: Soft (2) Cervix Position: Middle/Mid-Position (1) Subtract 1 point for: Nulliparity (-1) Vang Score: 8 Labs Laboratory Tests Test 02/13/23 06:20 02/13/23 06:35 Range/Units Urine Color YELLOW Urine Clarity CLOUDY Urine pH 6.5 5-9 Urine Specific [place] 1.020 1.016-1.022 Urine Protein NEGATIVE NEGATIVE Urine Glucose (UA) NEGATIVE NEGATIVE Urine Ketones NEGATIVE NEGATIVE Urine Nitrite NEGATIVE NEGATIVE Urine Bilirubin NEGATIVE NEGATIVE Urine Urobilinogen 0.2 < = 1.0 MG/DL Urine Leukocyte Esterase 1+ H NEGATIVE Urine RBC (Auto) NEGATIVE NEGATIVE Urine RBC 2-5 H /HPF Urine WBC 10-25 H /HPF Urine Squamous Epithelial Cells 10-25 H /HPF Urine Crystals PRESENT H /LPF Urine Amorphous Sediment MOD RICHARD URATES H /LPF Urine Bacteria LARGE H /HPF Urine Casts NONE /LPF Urine Mucus NEGATIVE /LPF Urine Culture Indicated YES White Blood Count 7.1 4.3-11.0 10^3/uL Red Blood Count 3.97 3.80-5.11 10^6/uL Hemoglobin 12.9 11.5-16.0 g/dL Hematocrit 37 35-52 % Mean Corpuscular Volume 94 80-99 fL Mean Corpuscular Hemoglobin 33 25-34 pg Mean Corpuscular Hemoglobin Concent 35 32-36 g/dL Red Cell Distribution Width 13.0 10.0-14.5 % Platelet Count 191 130-400 10^3/uL Mean Platelet Volume 11.1 9.0-12.2 fL Immature Granulocyte % (Auto) 1 % Neutrophils (%) (Auto) 62 42-75 % Lymphocytes (%) (Auto) 25 12-44 % Monocytes (%) (Auto) 10 0-12 % Eosinophils (%) (Auto) 2 0-10 % Basophils (%) (Auto) 0 0-10 % Neutrophils # (Auto) 4.4 1.8-7.8 10^3/uL Lymphocytes # (Auto) 1.8 1.0-4.0 10^3/uL Monocytes # (Auto) 0.7 0.0-1.0 10^3/uL Eosinophils # (Auto) 0.1 0.0-0.3 10^3/uL Basophils # (Auto) 0.0 0.0-0.1 10^3/uL Immature Granulocyte # (Auto) 0.1 0.0-0.1 10^3/uL Syphilis Total Antibody Negative Negative OB - Assessment/Plan/Diagnosis Assessment Assessment: induction of labor Admission Dx 32 yo @ 39 weeks IOL GBS pos Admission Status: Inpatient Order (span 2 midnights) Reason for Inpatient Admission: IOL at 39 weeks Plan Plan: Induction Induction Method: JOHANNA ARREDONDO DO Feb 13, 2023 08:45
[2023-02-13] MEDS: fentaNYL 2 mcg/ml BUPIVA 0.125 100 ML EPI SCH ×2 (08:58→16:36)
[2023-02-13] MEDS: AMPICILLIN FOR IV USE 1,000 MG in NS (IVPB) 50 ML IV SCH ×3 (11:02→19:39)
[2023-02-13] MEDS ORDERED: LACTATED RINGERS 1,000 ML IV ONE (13:15)
[2023-02-13] MEDS ORDERED: NALOXONE 0.4 MG/ML 1 ML (NARCAN) VIAL IV PRN ×2 (13:15→23:00)
[2023-02-13] MEDS ORDERED: ONDANSETRON 4 MG/2 ML (SDV) Z0FRAN IV PRN (13:15)
[2023-02-13] MEDS ORDERED: CATHETER FLUSH 10 ML SYR IV PRN (13:15)
[2023-02-13] MEDS: CATHETER FLUSH 10 ML SYR IV SCH ×2 (14:00→22:00)
[2023-02-13] MEDS ORDERED: CITRIC ACID/SOB CIT (BICITRA) 30 ML UDC ONE (22:32)
[2023-02-13] MEDS ORDERED: METOCLOPRAMIDE INJ 10 MG/2 ML (REGLAN) ONE ×2 (22:32→22:33)
[2023-02-13] MEDS ORDERED: FAMOTIDINE 20MG/2ML IV (PEPCID) ONE (22:32)
[2023-02-13] MEDS ORDERED: TERBUTALINE INJ 1 MG/ML (BRETHINE) AMP ONE (22:33)
--- NOTE | 2023-02-13 22:48 | Progress Note ---
Standard Progress Note Progress Notes/Assess & Plan Date Seen by a Provider: Feb 13, 2023 Time Seen by a Provider: 22:35 Progress/Assessment & Plan Patient admitted for IOL, after pushing for over an hour patient unable to progress pass +1 station. Large sacral promentory noted on exam, CPD suspected. There was a drop in heart rate with attempted internal cephalic version of the fetus to the 60s lasting 4 min at which point or CREW called STAT. Pitocin turned off, and turbutaline given. Return to baseline occured with minimal variability. Progressing to OR urgently. JOHANNA COLLINS DO Feb 13, 2023 22:48
--- NOTE | 2023-02-13 22:51 | Discharge Inst-Women's Service ---
Discharge Inst-Women's Serv Depart Medication/Instructions New, Converted or Re-Newed RX: Transmitted to Pharmacy Final Diagnosis POD 2 PLTCS Problems Reviewed?: Yes Consults/Follow Up Additional Follow Up: Yes Orders/Referrals Dr. Hooper in 7-10 days and in 6 weeks Activity Activity: Activity as Tolerated Driving Instructions: No Driving for 1 Week NO SMOKING: NO SMOKING Nothing Inside Vagina: No Douching, No Questa, No Tampons Diet Discharge Diet: No Restrictions Symptoms to Report to : Bleeding Excessive, Pain Increased, Fever Over 101 Degrees F, Vaginal Bleeding Increase, Questions/Concerns For Any Problems or Questions: Contact Your Physician Skin/Wound Care Infection Signs and Symptoms: Increased Redness, Foul Odor of Wound, Increased Drainage, Skin Itchy or Has a Rash, Increased Swelling, Temperature Above 101 F Operative Area Clean and Dry: Keep Incision Clean/Dry Stitches/[place]/Dermabond: Dermabond, Care of Stitches Bathing Instructions: JOHANNA Medina DO Feb 13, 2023 22:51
[2023-02-13] MEDS ORDERED: DOCU100C37 PO (22:52)
[2023-02-13] MEDS ORDERED: ACHD5005 PO (22:52)
[2023-02-13] MEDS ORDERED: IBUP-844 PO (22:52)
[2023-02-13] MEDS ORDERED: OXYTOCIN PRE-MIX DRIP 1,000 ML IV ONE (22:54)
[2023-02-13] MEDS ORDERED: ONDANSETRON 4 MG/2 ML (SDV) Z0FRAN ONE (22:54)
[2023-02-13] MEDS ORDERED: KETOROLAC 30 MG/ML VIAL ONE (22:54)
[2023-02-13] MEDS ORDERED: NS (IVPB) 50 ML ONE (23:00)
[2023-02-13] MEDS ORDERED: ceFAZolin INJECTION 2,000 MG ONE (23:00)
[2023-02-13] MEDS ORDERED: ONDANSETRON 4 MG/2 ML (SDV) Z0FRAN IVP PRN (23:00)
[2023-02-13] MEDS ORDERED: MEASLES,MUMPS,RUBELLA 1 EA INJ SC SCH (23:00)
[2023-02-13] MEDS ORDERED: TETANUS,DIPTH,PERTUSS P/F (BOOSTRIX) 0.5 ML VIAL IM SCH (23:00)
[2023-02-13] MEDS ORDERED: PHENYLEPHRINE 100 MCG/ML 10 ML (ANESTHESIA) SYR ONE (23:35)
[2023-02-13] MEDS ORDERED: METHYLERGONOVINE 0.2 MG/ML (METHERGINE) AMP ONE (23:39)
[2023-02-13] MEDS ORDERED: MEPERIDINE (DEMEROL) INJ 50 MG/ML ONE (23:46)
[2023-02-14] VITALS (9 sets, daily range): BP systolic 109–124; BP diastolic 55–77
[2023-02-14] MEDS ORDERED: BUPIVACAINE 0.5% 30 ML (SENSORCAINE) VIAL ONE (00:09)
[2023-02-14] MEDS ORDERED: NALOXONE 0.4 MG/ML 1 ML (NARCAN) VIAL IV PRN ×2 (00:45)
[2023-02-14] MEDS ORDERED: ONDANSETRON 4 MG/2 ML (SDV) Z0FRAN IVP PRN (00:45)
[2023-02-14] MEDS ORDERED: diphenhydrAMINE 50 MG/ML INJ (BENADRYL) IV PRN (00:45)
[2023-02-14] MEDS ORDERED: METOCLOPRAMIDE INJ 10 MG/2 ML (REGLAN) IV PRN (00:45)
[2023-02-14] MEDS ORDERED: morphine INJ 10 MG/ML 1ML (SYR OR VIAL) IVP ONE (00:45)
[2023-02-14] MEDS ORDERED: ONDANSETRON 4 MG/2 ML (SDV) Z0FRAN IV PRN (00:45)
[2023-02-14] MEDS: OXYTOCIN PRE-MIX DRIP 500 ML IV SCH ×2 (01:20→05:20)
[2023-02-14] MEDS ORDERED: TERBUTALINE INJ 1 MG/ML (BRETHINE) AMP SC ONE (01:45)
[2023-02-14] MEDS ORDERED: LACTATED RINGERS 1,000 ML IV PRN (02:00)
[2023-02-14] MEDS ORDERED: METOCLOPRAMIDE INJ 10 MG/2 ML (REGLAN) IV ONE (02:00)
[2023-02-14] MEDS ORDERED: CITRIC ACID/SOB CIT (BICITRA) 30 ML UDC PO ONE (02:00)
[2023-02-14] MEDS ORDERED: FAMOTIDINE 20MG/2ML IV (PEPCID) IV ONE (02:00)
[2023-02-14] MEDS: HYDROcodone/APAP 5 MG/325 MG (LORTAB) TAB PO PRN ×3 (02:18→20:46)
--- NOTE | 2023-02-14 03:08 | OPERATIVE REPORT ---
PREOPERATIVE DIAGNOSES: 1. A 32-year-old G1, P0 at 39 weeks and 5 days gestation. 2. Cephalopelvic disproportion. 3. intolerance of second stage labor. POSTOPERATIVE DIAGNOSES: 1. A 32-year-old G1, P0 at 39 weeks and 5 days gestation. 2. Cephalopelvic disproportion. 3. intolerance of second stage labor. PROCEDURE: Primary low transverse section. SURGEON: Pipe Collins DO ANESTHESIA: Spinal. ESTIMATED BLOOD LOSS: 400 mL. URINE OUTPUT: 100 mL clear at the end of the procedure. FLUIDS: 1700 mL lactated Ringer's solution. FINDINGS: A live male weighing 8 pounds 14 ounces, Apgars of 9 and 9. Grossly normal appearing uterus, fallopian tubes and ovaries as well as a nuchal cord reduced x1. SPECIMEN SENT: Placenta. INDICATIONS FOR PROCEDURE: This 32-year-old female was brought in for induction of labor electively at the patient's request. She was 3 cm at induction time. She progressed all the way to complete with an epidural for analgesia, pushed for over an hour with little progression past +1 to +2 station. There was a protuberance noted from her sacral promontory. I feel this was limiting the baby's ability to descend into the pelvis. An attempt was made to rotate the presentation using a low vacuum Kiwi extractor, the rotation was unsuccessful and there was a drop in the heart rate at that point, suction was discontinued. The patient was recommended to proceed with . Risks of procedure were discussed with the patient in detail and after all of her questions were answered, consent was obtained, the patient was taken to the operating room. OPERATIVE REPORT IN DETAIL: Once in the operating room, spinal analgesia was administered and found to be adequate. She was placed in supine position with leftward tilt, prepped and draped in normal sterile fashion. Timeout was performed. Anesthesia was tested. I then made a Pfannenstiel skin incision with a knife and carried down to the underlying fascia using Bovie cautery. The fascial incision extended laterally using Bovie cautery. The superior aspect of fascial incision was then grasped with Sergio clamps, tented up and dissected off the underlying rectus muscles. The inferior aspect of the fascial incision was then grasped with Sergio clamps, tented up and dissected off the underlying rectus muscles. The rectus muscles were dissected down the midline using sharp dissection, which exposed the peritoneum, which I entered bluntly and extended using blunt traction. Giovanni ring retractor was placed in the peritoneal incision, which offers excellent lateral sidewall retraction. I identified lower uterine segment, was found to be thinned out and make a low transverse incision in the vesicouterine peritoneum and bluntly dissected off the lower uterine segment, creating a bladder flap. I then proceeded with my myotomy until membranes were visualized, at which point I extended the uterine incision laterally and superiorly using bandage scissors. was found in vertex presentation. With gentle fundal pressure, the infant's head elevated up to the incision where delivered through the incision, the nares and oropharynx were bulb suctioned. A nuchal cord was reduced x1. Anterior and posterior shoulders were delivered. The was then brought to the operative field, where cords were doubly clamped and cut and infant was handed off to waiting nurses in attendance. Cord blood was collected. Three-vessel cord with intact placenta delivered spontaneously thereafter. IV Pitocin was initiated to facilitate uterine contraction. Uterine fundus remained atonic after exteriorized and cleared of all endometrial clots and debris; therefore, I have anesthesia administer 0.2 mg of Methergine IM, which responds in good uterine tone. Once exteriorized, I closed the uterine incision using 0 Vicryl suture in a running locked fashion. Second layer of imbricating 0 Monocryl was placed. Excellent hemostasis was noted after doing this. Then placed the uterus back in the pelvis and copiously irrigated the pelvis using normal saline. Once again, there was no active bleeding noted from any of my dissection planes. I placed Interceed antiadhesive over my low transverse incision. I removed the Giovanni ring retractor and then proceeded with closing the peritoneum using 3-0 Vicryl suture in a running fashion. Rectus muscle was reapproximated using 3-0 Vicryl suture in interrupted fashion. The fascia was reapproximated using 0 Vicryl suture in a running fashion. The subcutaneous tissue was reapproximated using 3-0 plain interrupted subcutaneous stitch and skin reapproximated using 4-0 Monocryl in a running subcuticular. Dermabond was applied to incision, sterile dressing with adhesive white tape. The patient tolerated the procedure well and was taken to recovery in stable condition. Lap and sponge counts were correct at the end of the procedure. Instrument counts correct as well. Two grams Ancef were given preoperatively for infection prophylaxis. Job ID: [id number] DocumentID: [id number] Dictated Date: 02/14/2023 00:06:56 Photovoltaic Installation Technician Date: 02/14/2023 03:05:00 Dictated By: PIPE COLLINS DO
[2023-02-14 05:39] LABS: BASOPHILS % (AUTO) 0 % (0-10); EOSINOPHILS % (AUTO) 0 % (0-10); HEMATOCRIT 29 % (35-52); HEMOGLOBIN 9.6 g/dL (11.5-16.0); LYMPHOCYTES # (AUTO) 0.8 10^3/uL (1.0-4.0); LYMPHOCYTES % (AUTO) 8 % (12-44); MEAN CORPUSCULAR HEMOGLOBIN 32 pg (25-34); MEAN CORPUSCULAR HGB CONC 34 g/dL (32-36); MEAN CORPUSCULAR VOLUME 95 fL (80-99); MEAN PLATELET VOLUME 10.8 fL (9.0-12.2); MONOCYTES # (AUTO) 0.7 10^3/uL (0.0-1.0); MONOCYTES % (AUTO) 7 % (0-12); NEUTROPHILS # (AUTO) 8.9 10^3/uL (1.8-7.8); NEUTROPHILS % (AUTO) 85 % (42-75); PLATELET COUNT 161 10^3/uL (130-400); WHITE BLOOD COUNT 10.5 10^3/uL (4.3-11.0)
[2023-02-14] MEDS ORDERED: CATHETER FLUSH 10 ML SYR IV SCH (06:00)
[2023-02-14] MEDS: KETOROLAC 30 MG/ML VIAL IV SCH ×3 (06:13→17:59)
[2023-02-14] MEDS: CATHETER FLUSH 10 ML SYR IV SCH ×2 (06:14→12:56)
--- NOTE | 2023-02-14 07:29 | Postpartum Progress Note ---
Note Note Day # 1 Subjective: Patient is without complaints. Ambulating, voiding. Tolerating a regular diet without nausea or vomiting. Normal lochia. Pain is well controlled with oral pain medications. Objective: Physical Exam: General - Alert and oriented, no apparent distress Abdomen - Soft, appropriately tender to palpation, non-distended, fundus firm at umbilicus Extremities - no edema, negative Karen's bilaterally Incision- c/d/i Assessment: POD 1 PLTCS Acute blood loss anemia Plan: Routine care. Encourage breast feeding. Encourage ambulation. Ferrous sulfate supplementation. Plan for discharge tomorrow Vitals - Labs Vital Signs - I&O Vital Signs Date Time Temp Pulse Resp B/P (MAP) Pulse Ox O2 Delivery O2 Flow Rate FiO2 02/14/23 06:15 36.4 95 18 111/68 (82) 97 Room Air 02/14/23 02:20 36.4 106 18 119/55 (76) 98 Room Air 02/14/23 00:53 Room Air 02/14/23 00:53 Room Air 02/14/23 00:53 36.2 18 113/70 (84) 98 Room Air 02/14/23 00:38 Room Air 02/14/23 00:38 36.2 18 117/77 (90) 98 Room Air 02/14/23 00:23 36.2 18 109/76 (87) 99 Room Air 02/14/23 00:23 Room Air 02/14/23 00:08 36.1 18 117/59 (78) 99 Room Air 02/14/23 00:08 Room Air 02/13/23 23:00 134 18 126/61 (82) Room Air 02/13/23 22:45 151 18 125/67 (86) Room Air 02/13/23 22:30 102 18 129/71 (90) Room Air 02/13/23 22:15 114 18 115/63 (80) Room Air 02/13/23 22:00 115 18 134/66 (88) Room Air 02/13/23 21:45 103 18 138/77 (97) Room Air 02/13/23 21:30 36.1 107 18 142/67 (92) 99 Room Air 02/13/23 21:15 83 18 115/74 (88) 99 Room Air 02/13/23 21:00 83 18 125/61 (82) 100 Room Air 02/13/23 20:45 92 18 110/63 (79) 100 Room Air 02/13/23 20:30 93 18 110/65 (80) 99 Room Air 02/13/23 20:15 88 18 112/61 (78) 98 Room Air 02/13/23 20:00 88 18 117/68 (84) 98 Room Air 02/13/23 19:45 90 18 107/63 (78) 99 Room Air 02/13/23 19:30 98 18 121/78 (92) 99 Room Air 02/13/23 19:15 90 18 135/70 (91) 99 Room Air 02/13/23 18:52 90 18 125/61 (82) 100 Room Air 02/13/23 18:38 84 18 124/66 (85) 100 Room Air 02/13/23 18:22 81 16 126/72 (90) 99 Room Air 02/13/23 18:08 36.0 81 18 108/68 (81) 98 Room Air 02/13/23 17:55 85 16 117/66 (83) 100 Room Air 02/13/23 17:37 108 16 94/51 (65) 99 Room Air 02/13/23 17:21 87 16 127/82 (97) 100 Room Air 02/13/23 17:09 94 18 104/56 (72) 99 Room Air 02/13/23 16:51 104 18 116/76 (89) 100 Room Air 02/13/23 16:37 102 18 115/71 (86) 100 Room Air 02/13/23 16:22 88 20 128/87 (101) 100 Room Air 02/13/23 16:08 36.4 71 16 114/58 (76) 97 Room Air 02/13/23 15:52 80 16 126/72 (90) 97 Room Air 02/13/23 15:36 75 18 105/55 (72) 100 Room Air 02/13/23 15:21 80 18 113/60 (77) 99 Room Air 02/13/23 15:07 97 18 108/65 (79) 97 Room Air 02/13/23 14:53 86 18 113/76 (88) Room Air 02/13/23 14:37 111 18 98/65 (76) Room Air 02/13/23 14:23 87 18 112/56 (74) 100 Room Air 02/13/23 14:07 36.2 81 16 127/77 (94) 100 Room Air 02/13/23 13:51 86 18 116/65 (82) 99 Room Air 02/13/23 13:38 78 18 129/76 (93) 100 Room Air 02/13/23 13:22 81 18 117/82 (94) 97 Room Air 02/13/23 13:00 102 18 113/79 (90) 98 Room Air 02/13/23 12:45 88 18 131/71 (91) 100 Room Air 02/13/23 12:21 96 16 132/85 (101) 98 Room Air 02/13/23 12:08 36.8 93 16 108/67 (81) 100 Room Air 02/13/23 11:51 75 16 112/57 (75) 100 Room Air 02/13/23 11:37 83 18 117/67 (84) 99 Room Air 02/13/23 11:22 73 18 114/70 (85) 99 Room Air 02/13/23 11:07 88 18 116/56 (76) 100 Room Air 02/13/23 10:53 88 18 122/63 (82) 99 Room Air 02/13/23 10:36 92 16 117/66 (83) 98 Room Air 02/13/23 10:23 88 16 121/63 (82) 97 Room Air 02/13/23 10:07 36.6 90 18 105/65 (78) 100 Room Air 02/13/23 09:55 94 18 124/80 (95) 100 Room Air 02/13/23 09:35 99 18 123/71 (88) 100 Room Air 02/13/23 09:20 96 18 119/76 (90) 98 Room Air 02/13/23 09:17 82 18 126/81 (96) 98 Room Air 02/13/23 09:14 111 18 124/76 (92) 98 Room Air 02/13/23 09:11 75 18 126/77 (93) 98 Room Air 02/13/23 09:08 95 18 122/60 (80) 98 Room Air 02/13/23 09:06 93 16 109/64 (79) 98 Room Air 02/13/23 09:04 85 16 104/56 (72) 99 Room Air 02/13/23 09:01 108 20 113/78 (90) 99 Room Air 02/13/23 08:58 129 20 126/78 (94) 99 Room Air 02/13/23 08:55 36.4 113 18 128/75 (92) 98 Room Air 02/13/23 08:52 108 18 119/72 (88) 98 Room Air 02/13/23 08:49 101 18 118/73 (88) 98 Room Air 02/13/23 08:46 106 18 129/69 (89) 100 Room Air 02/13/23 08:44 97 18 128/79 (95) 99 Room Air 02/13/23 08:25 95 18 121/76 (91) 02/13/23 07:45 36.6 93 18 122/77 (92) Room Air I & O 02/14/23 07:00 Intake Total 3450 ml Output Total 1675 ml Balance 1775 ml Labs Laboratory Tests 02/14/23 05:27: White Blood Count 10.5, Red Blood Count 3.00L, Hemoglobin 9.6#L, Hematocrit 29L, Mean Corpuscular Volume 95, Mean Corpuscular Hemoglobin 32, Mean Corpuscular Hemoglobin Concent 34, Red Cell Distribution Width 12.9, Platelet Count 161, Mean Platelet Volume 10.8, Immature Granulocyte % (Auto) 0, Neutrophils (%) (Auto) 85H, Lymphocytes (%) (Auto) 8L, Monocytes (%) (Auto) 7, Eosinophils (%) (Auto) 0, Basophils (%) (Auto) 0, Neutrophils # (Auto) 8.9H, Lymphocytes # (Auto) 0.8L, Monocytes # (Auto) 0.7, Eosinophils # (Auto) 0.0, Basophils # (Auto) 0.0, Immature Granulocyte # (Auto) 0.0 JOHANNA COLLINS DO Feb 14, 2023 07:29
--- NOTE | 2023-02-14 07:38 | Anesthesia-Regional Post-Op ---
Regional Patient Condition Mental Status: Alert, Oriented x3 Circulation: Same as Pre-Op Headache: Absent Sensation: Full Recovery Motor Block: Absent Post Op Complications Complications None Follow Up Care/Instructions Patient Instructions None needed. Anesthesia/Patient Condition Patient is doing well, no complaints, stable vital signs, no apparent adverse anesthesia problems. No complications reported per nursing. D/C home per [facility] Criteria: Yes NANY DIXON CRNA Feb 14, 2023 07:38
[2023-02-14] MEDS: DOCUSATE SODIUM 100 MG (COLACE) CAP PO SCH ×2 (08:19→20:46)
[2023-02-15] MEDS: IBUPROFEN 600 MG (MOTRIN) TAB PO SCH ×2 (00:22→08:05)
[2023-02-15] MEDS: HYDROcodone/APAP 5 MG/325 MG (LORTAB) TAB PO PRN ×3 (00:25→16:29)
[2023-02-15 00:46] VITALS: BP 119/64
[2023-02-15 06:05] VITALS: BP 93/52
[2023-02-15] MEDS: DOCUSATE SODIUM 100 MG (COLACE) CAP PO SCH (08:17)
[2023-02-15 08:21] VITALS: BP 109/65
--- NOTE | 2023-02-15 08:36 | Postpartum Progress Note ---
Note Note Day #2 Subjective: Patient States that she is having little bit of pain particularly at her incision site.. Ambulating, voiding. Tolerating a regular diet without nausea or vomiting. Normal lochia. Pain is well controlled with oral pain medications. Breast feeding. [] Objective: [] Physical Exam: General - Alert and oriented, no apparent distress Breasts are symmetrical no erythema or edema or engorgement. Abdomen - Soft, appropriately tender to palpation, non-distended, fundus firm at umbilicus Incision clean dry intact no signs or symptoms of infection Lochia minimal Extremities - no edema, negative Karen's bilaterally Assessment: [] post- day #2 status post Low transverse delivery. Recovering well, hemodynamically stable Plan: Routine care. Encourage breast feeding. Encourage ambulation. Ferrous sulfate supplementation. Plan for discharge [] Vitals - Labs Vital Signs - I&O Vital Signs Date Time Temp Pulse Resp B/P (MAP) Pulse Ox O2 Delivery O2 Flow Rate FiO2 02/15/23 08:21 36.4 76 18 109/65 (80) 98 Room Air 02/15/23 08:17 36.4 02/15/23 06:05 36.0 78 16 93/52 (66) 97 Room Air 02/15/23 00:46 36.6 93 18 119/64 (82) 97 Room Air 02/14/23 17:59 36.4 101 18 117/66 (83) 97 Room Air 02/14/23 12:56 36.6 105 18 124/75 (91) 99 Room Air Labs Microbiology 02/13/23 Urine Culture - Final, Complete NO GROWTH VERN OWUSU DO Feb 15, 2023 08:36
[2023-02-15 12:00] VITALS: BP 108/77
[2023-02-15] MEDS ORDERED: IBUPROFEN 600 MG (MOTRIN) TAB PO SCH (14:00)
[2023-02-15 16:30] VITALS: BP 116/80
--- NOTE | 2023-02-15 17:17 | Progress Note ---
Standard Progress Note Progress Notes/Assess & Plan Date Seen by a Provider: Feb 15, 2023 Time Seen by a Provider: 17:10 Progress/Assessment & Plan Patient feeling much better and pain is well controlled VSS AF ABD soft NT ND incision site c/d/I no s/s of infection Lochia minimal Uterus firm midline below umbilicus EXt intact x4 no c/c/e/e Will DC to home this afternoon f/u in 1-2wks. VERN OWUSU DO Feb 15, 2023 17:17
== END 2023-02-15 19:31 | disposition home or self-care (01) | DRG 787 ==
LOC: LDRP 06:16
PROVIDERS: ADMIT Obstetrics & Gynecology; ATTEND Obstetrics & Gynecology
PROC: 10907ZC Drainage of Amniotic Fluid, Therapeutic from Products of Conception, Via Natural or Artificial Opening (ICD-10-PCS; 2023-02-13)
PROC: 10D00Z1 Extraction of Products of Conception, Low, Open Approach (ICD-10-PCS; principal; 2023-02-14)
DX: O99.824 Streptococcus B carrier state complicating childbirth (principal); D62 Acute posthemorrhagic anemia; O36.8330 Maternal care for abnormalities of the fetal heart rate or rhythm, third trimester, not applicable or unspecified; O61.1 Failed instrumental induction of labor; O65.0 Obstructed labor due to deformed pelvis; O69.81X0 Labor and delivery complicated by cord around neck, without compression, not applicable or unspecified; O90.81 Anemia of the puerperium; Z37.0 Single live birth; Z3A.39 39 weeks gestation of pregnancy
CPT/HCPCS: 36415; 81000; 85025; 86780; 86850; 86900; 86901; 87088; 94664